=== PATIENT | female | born 1980 | race Caucasian/White ===

== ENCOUNTER 2022-10-16 17:23 | Emergency (ER) | payer BC, SELFPAY ==
[2022-10-16 17:29] VITALS: BP 133/93; PULSE 69; RESP 16; TEMP 36.8; O2SAT 100; BMI 25.7
--- NOTE | 2022-10-16 17:32 | ED.UPPEXIN1 ---
HPI - Extremity Injury (Upper) General Chief Complaint: Extremity Injury, Upper Stated Complaint: RT WRIST INJURY/FALL Time Seen by Provider: 10/16/22 17:32 Source: patient and family Mode of arrival: walk-in Limitations: no limitations History of Present Illness HPI narrative: pt tripped and fell as she was going to work one hour prior to arrival. She landed on her right hand and hurt her right wrist. She complains of swelling to the distal radius area. She denies any paresthesias, weakness. Pain is worse when she tries to move her wrist. She denies any pain to the snuffbox. She denies any numbness. Patient denies any fever, chills. She denies any history of IV drug use. Related Data Allergies Allergy/AdvReac Type Severity Reaction Status Date / Time ciprofloxacin [From Cipro] Allergy Severe Verified 10/16/22 17:32 penicillin Allergy Severe Hives Uncoded 10/16/22 17:32 oral contraceptive AdvReac Severe Abdominal Uncoded 10/16/22 17:32 Pain Review of Systems ROS Status of ROS 10 or more systems reviewed and unremarkable except as noted in history and below [facility] Social History Smoking status: Current every day smoker Exam Narrative Exam Narrative: Nurses notes and vital signs reviewed and patient is not hypoxic. General: Nontoxic, Well-appearing and in no apparent distress. Skin: Warm, dry, no pallor noted. No Rash Head: Normocephalic, atraumatic. Neck: Supple, non-tender. Eye: Pupils are equal, round and EOMI. No scleral icterus. Ears, Nose, Mouth, and Throat: TM clear, no posterior oropharynx erythema or nasal mucosal hypertrophy, uvula is mid-line Oral mucosa is moist Cardiovascular: Regular Rate and Rhythm without murmur, gallop or rub. Respiratory: No accessory muscle use or respiratory distress. Lungs are clear to auscultation, no wheezing, rales or rhonchi Chest Wall: no tenderness Back: No midline thoracic or lumbar vertebral tenderness. No CVA tenderness Musculoskeletal: Mild edema to the distal radius surface. Tenderness to palpation. There are no step-offs. No erythema, no pain over the snuffbox. No pulse +2, capillary refill is brisk. normal ROM, no calf or popliteal tenderness, no lower extremity edema/swelling. GI: Abdomen is soft, non-distended. Normal bowel sounds. No masses appreciated. No tenderness to palpation. No rebound, guarding, or rigidity noted. Neurological: A&O x4. No cranial nerve dysfunction observed. No truncal ataxia. Moves all extremities. Sensation intact. Psychiatric: Cooperative and interactive. Normal mood and affect. Constitutional Vital Signs, click to edit/add: Last Vital Signs Temp 98.3 F 10/16/22 17:29 Pulse 69 10/16/22 17:29 Resp 16 10/16/22 17:29 BP 133/93 H 10/16/22 17:29 Pulse Ox 100 10/16/22 17:29 O2 Del Method Room Air 10/16/22 17:29 Course Vital Signs Vital signs: Vital Signs Temperature 98.3 F 10/16/22 17:29 Pulse Rate 69 10/16/22 17:29 Respiratory Rate 16 10/16/22 17:29 Blood Pressure 133/93 H 10/16/22 17:29 Pulse Oximetry 100 10/16/22 17:29 Oxygen Delivery Method Room Air 10/16/22 17:29 Temperature 98.3 F 10/16/22 17:29 Pulse Rate 69 10/16/22 17:29 Respiratory Rate 16 10/16/22 17:29 Blood Pressure 133/93 H 10/16/22 17:29 Pulse Oximetry 100 10/16/22 17:29 Oxygen Delivery Method Room Air 10/16/22 17:29 MDM - Extremity Injury (Upper) MDM Narrative Medical decision making narrative: X-ray does not show any bony injury. Patient has been with range of motion. She states she will take Motrin when she gets home. She'll be placed on an Josue wrap and a velcro splint for now. Patient will follow up with primary care doctor. No additional indication for emergent studies at this time. I answered all questions. Discussed discharge instructions including standard anticipatory guidance and what should prompt a return to the emergency department, including if they get worse are not getting better or develops any new or concerning symptoms. I've given them specific time frame in which to follow-up, and who to follow-up with. The patient demonstrates understanding. Patient is nontoxic and stable for discharge with outpatient follow-up. This note was created with the assistance of a speech recognition program. Although the intention is to generate documents that actually reflects the content of the visit, no guarantees can be provided that every mistake has been identified and corrected by editing. Differential Diagnosis Differential diagnosis: Likely sprain and strain of wrist and fracture of wrist Discharge Plan Discharge Chief Complaint: Extremity Injury, Upper Clinical Impression: Sprain and strain of wrist Patient Disposition: Home, Self-Care Time of Disposition Decision: 18:29 Condition: Good Mode of Transportation: Private Vehicle Instructions: Sprain (ED) Stand Alone Forms: Portal Instructions Referrals: FABRICE PEREZ [Primary Care Provider] - 1 week
--- NOTE | 2022-10-16 17:33 | XR_ITS ---
The [address] [address] Patient Name: KRISTIE HEARD MRN: [id number] date: 1980 Sex: F Assigned Patient Location: ER Current Patient Location: ED.MAIN Accession/Order Number: [id number] Exam Date: 10/16/2022 17:42 Report Date: 10/16/2022 18:10 At the request of: JUSTIN GARNETT Procedure: XR wrist RT 2V EXAM: XR wrist RT 2V HISTORY: injury COMPARISON: None. TECHNIQUE: 2 views of the right wrist are performed. FINDINGS: There is no acute fracture. The bony structures are intact. There appears to be some soft tissue edema along the radial aspect of the distal forearm. Joint spaces are maintained. XR/XR wrist RT 2V IMPRESSION: Soft tissue swelling along the distal forearm. No acute fracture is seen. Electronically authenticated by: LUIS MARTELL Date: 10/16/2022 18:10
[2022-10-16 18:35] VITALS: BP 126/76; PULSE 88; RESP 18; O2SAT 99
== END 2022-10-16 18:39 | disposition home or self-care (01) ==
PROVIDERS: Emergency Provider Emergency Medicine; PCP Family Medicine
DX: S63.501A Unspecified sprain of right wrist, initial encounter (principal); S66.911A Strain of unspecified muscle, fascia and tendon at wrist and hand level, right hand, initial encounter; W01.10XA Fall on same level from slipping, tripping and stumbling with subsequent striking against unspecified object, initial encounter; F17.210 Nicotine dependence, cigarettes, uncomplicated
CPT/HCPCS: 73100; 99283

== ENCOUNTER 2024-02-09 18:58 | Emergency (ER) | payer BC, SELFPAY ==
[2024-02-09 19:01] VITALS: BP 150/89; PULSE 75; TEMP 36.5; O2SAT 98; BMI 30.9
--- NOTE | 2024-02-09 19:12 | ED_ITS ---
HPI HPI - General Adult General Chief complaint: Headache Stated complaint: MIGRAINE Time Seen by Provider: 02/09/24 19:04 Source: patient Mode of arrival: walk-in Limitations: no limitations History of Present Illness HPI narrative: pt w long history of migraine headaches presents with pain typical of her prior migraines - diffuse headache that is associated with nausea and some photophobia along with increased desire to sleep. Pain started about one week ago -no precipitating injury or other inciting event. no relief with tylenol, excedrin, motrin or other OTC meds. Dr Siddiqi has previously prescribed triptans without any success. No fever or chills. No neck or back manjarrez. No URI symptoms. No dizziness. or visual changes. No numbness, tingling or weakness. no sensory changes. Related Data Allergies Allergy/AdvReac Type Severity Reaction Status Date / Time ciprofloxacin (From Cipro) Allergy Severe Verified 10/16/22 17:32 penicillin Allergy Severe Hives Uncoded 10/16/22 17:32 oral contraceptive AdvReac Severe Abdominal Uncoded 10/16/22 17:32 Pain Opioid HPI Opioid Management Most Recent Opioid Data: Last Pain Scale 5 02/09/24 20:50 02/09/24 Last ED Pain Assessment 02/09/24 20:50 PFSH PFSH Social History Smoking status: Current every day smoker Little interest or pleasure in doing things: not at all Feeling down, depressed, or hopeless: not at all Exam Narrative Exam Narrative: Nurses notes and vital signs reviewed and patient is not hypoxic. afebrile General: Well-appearing and in no apparent distress. Skin: Warm, dry, no pallor noted. No meningitis-type rash. Head: Normocephalic, atraumatic. Neck: Supple, non-tender. No nuchal rigidity or meningismus. Eye: Pupils are equal, round and EOMI. No nystagmus Ears, Nose, Mouth, and Throat: Oral mucosa is moist Cardiovascular: Regular Rate and Rhythm without murmur, gallop or rub. Respiratory: No accessory muscle use or respiratory distress. Lungs are clear to auscultation, no wheezing, rales or rhonchi Musculoskeletal: normal ROM GI: Abdomen is soft, non-distended. Normal bowel sounds. Neurological: A&O x4. No cranial nerve dysfunction observed. No truncal ataxia. Moves all extremities. Sensation intact. Psychiatric: Cooperative and interactive. Normal mood and affect. Constitutional Vital Signs, click to edit/add: Last Vital Signs Temp 97.7 F 02/09/24 19:01 Pulse 59 L 02/09/24 20:50 Resp 16 02/09/24 20:50 BP 125/78 02/09/24 20:50 Pulse Ox 100 02/09/24 20:50 O2 Del Method Room Air 02/09/24 20:50 Course Vital Signs Vital signs: Vital Signs Temperature 97.7 F 02/09/24 19:01 Pulse Rate 75 02/09/24 19:01 Respiratory Rate 18 02/09/24 19:01 Blood Pressure 150/89 H 02/09/24 19:01 Pulse Oximetry 98 02/09/24 19:01 Oxygen Delivery Method Room Air 02/09/24 19:01 Temperature 97.7 F 02/09/24 19:01 Pulse Rate 59 L 02/09/24 20:50 Respiratory Rate 16 02/09/24 20:50 Blood Pressure 125/78 02/09/24 20:50 Pulse Oximetry 100 02/09/24 20:50 Oxygen Delivery Method Room Air 02/09/24 20:50 Medical Decision Making MDM Narrative Medical decision making narrative: Pt presents with headache typical of her prior migraines. No findings on interview or exam to suggest acute meningitis or SAH. Peripheral IV established and pt received IV Zofran and IV Toradol. On recheck @ 2004, the pt reported decrease in Headache from 8/10 to 5/10. She was ordered to receive IV solu-medrol and IV Benadryl to try and decrease the pain level further. On recheck @ 2049, about 30min after she received the 2nd round of meds, her headache had decreased to 2/10. She was discharged home. Discharge Plan Discharge Chief Complaint: Headache Clinical Impression: Migraine Patient Disposition: Home, Self-Care Time of Disposition Decision: 21:02 Print Language: Vincentian Instructions: Migraine Headache (ED) Referrals: FABRICE SIDDIQI [Primary Care Provider] - 1 week
[2024-02-09] MEDS: ONDANSETRON PF 4 MG/2 ML VIAL IV (19:37)
[2024-02-09] MEDS: KETOROLAC TROMETHAMINE 30 MG/ML VIAL IVP (19:37)
[2024-02-09] MEDS: METHYLPREDNISOLONE SOD SUCC PF 125 MG/2 ML VIAL IVP (20:34)
[2024-02-09] MEDS: DIPHENHYDRAMINE HCL 50 MG/ML VIAL 25 MG IV (20:34)
[2024-02-09 20:50] VITALS: BP 125/78; PULSE 59; O2SAT 100
== END 2024-02-09 21:15 | disposition home or self-care (01) ==
PROVIDERS: Emergency Provider Emergency Medicine; PCP Family Medicine
DX: G43.909 Migraine, unspecified, not intractable, without status migrainosus (principal); F17.200 Nicotine dependence, unspecified, uncomplicated
CPT/HCPCS: 96374; 96375; 99284; J1200; J1885; J2405; J2919

== ENCOUNTER 2024-03-09 18:51 | Emergency (ER) | payer BC, SELFPAY ==
[2024-03-09 19:01] VITALS: BP 160/97; PULSE 90; TEMP 36.7; O2SAT 96; BMI 29.1
[2024-03-09 19:20] LABS: Glucometer 101 mg/dL (74-106)
--- NOTE | 2024-03-09 19:20 | PC.NURSE ---
FSBS is 101
--- NOTE | 2024-03-09 19:21 | ECG_ITS ---
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
--- NOTE | 2024-03-09 19:23 | ED_ITS ---
HPI HPI - General Adult General Chief complaint: Anxiety Stated complaint: SHAKES Time Seen by Provider: 03/09/24 19:02 Source: patient Mode of arrival: walk-in History of Present Illness HPI narrative: 43-year-old male presents to the emergency department for tremors. This started about 2 hours ago. She gets this a few times a week for many years. She has a history of anxiety but has not taken her Xanax in a month. She also has a history of essential tremors. No fever vomiting chest pain or cough. Related Data Home Medications ?Medication ?Instructions ?Recorded ?Confirmed alprazolam 0.5 mg tablet mg 03/09/24 cyclobenzaprine 10 mg tablet mg 03/09/24 Allergies Allergy/AdvReac Type Severity Reaction Status Date / Time ciprofloxacin (From Cipro) Allergy Severe Verified 10/16/22 17:32 penicillin Allergy Severe Hives Uncoded 10/16/22 17:32 oral contraceptive AdvReac Severe Abdominal Uncoded 10/16/22 17:32 Pain Opioid HPI Opioid Management Most Recent Opioid Data: Last Pain Scale 5 02/09/24 20:50 02/09/24 Review of Systems ROS Narrative A ten point review of systems is negative except as noted above. PFSH PFSH Social History Smoking status: Current every day smoker Little interest or pleasure in doing things: not at all Feeling down, depressed, or hopeless: not at all Exam Narrative Exam Narrative: Nurses note and vital signs reviewed and patient is not hypoxic. General: The patient appears in no apparent distress. Patient is resting comfortably on cart. Skin: Warm, dry, no pallor noted. There is no rash noted. Head: Normocephalic, atraumatic Eye: Normal conjunctiva, no drainage Ears, Nose, Mouth, and Throat: oral mucosa is moist. Nares patent. Cardiovascular: Regular Rate and Rhythm Respiratory: Patient is in no distress, no accessory muscle use, lungs are clear to auscultation, no wheezing, rales or rhonchi Back: non-tender GI: Soft and nontender Musculoskeletal: The patient has no evidence of calf tenderness, no pitting edema, symmetrical pulses noted bilaterally Neurological: A&O x4, normal speech; she has tremors in all 4 extremities Psychiatric: Cooperative Constitutional Vital Signs, click to edit/add: Last Vital Signs Temp 98.1 F 03/09/24 19:01 Pulse 90 03/09/24 19:01 Resp 20 03/09/24 19:01 BP 128/90 03/09/24 20:03 Pulse Ox 96 03/09/24 19:01 O2 Del Method Room Air 03/09/24 19:01 Course Vital Signs Vital signs: Vital Signs Temperature 98.1 F 03/09/24 19:01 Pulse Rate 90 03/09/24 19:01 Respiratory Rate 20 03/09/24 19:01 Blood Pressure 160/97 H 03/09/24 19:01 Pulse Oximetry 96 03/09/24 19:01 Oxygen Delivery Method Room Air 03/09/24 19:01 Temperature 98.1 F 03/09/24 19:01 Pulse Rate 90 03/09/24 19:01 Respiratory Rate 20 03/09/24 19:01 Blood Pressure 128/90 03/09/24 20:03 Pulse Oximetry 96 03/09/24 19:01 Oxygen Delivery Method Room Air 03/09/24 19:01 Medical Decision Making MDM Narrative Medical decision making narrative: Blood work is nonspecific. She was given IV Ativan and her tremors have resolved. I suspect that her symptoms are due to anxiety. Treatment diagnosis and follow-up were discussed with the patient. Differential Diagnosis Differential Diagnosis: Tremors, anxiety Lab Data Lab results reviewed: Yes I reviewed the patient's lab results Labs: Lab Results 03/09/24 03/09/24 Range/Units 19:19 19:35 WBC 15.1 H (4.0-11.0) 10^3/uL RBC 5.35 (4.20-5.40) 10^6/uL Hgb 15.4 (12.0-16.0) g/dL Hct 45.5 (36.0-48.0) % MCV 85.0 (81.0-99.0) fL MCH 28.8 (26.7-34.0) pg MCHC 33.8 (29.9-35.2) g/dL RDW 13.4 (11.0-15.0) % Plt Count 324 (150-450) 10^3/uL MPV 11.3 (9.5-13.5) fL Neut % (Auto) 71.1 (43.0-75.0) % Lymph % (Auto) 23.7 (20.5-60.0) % O'Brien % (Auto) 3.4 (1.7-12.0) % Eos % (Auto) 0.7 L (0.9-7.0) % Baso % (Auto) 0.5 (0.2-2.0) % Neut # (Auto) 10.7 H (1.4-6.5) 10^3/uL Lymph # (Auto) 3.6 (1.2-3.8) 10^3/uL O'Brien # (Auto) 0.5 (0.3-0.8) 10^3/uL Eos # (Auto) 0.1 (0.0-0.7) 10^3/uL Baso # (Auto) 0.1 (0.0-0.1) 10^3/uL Abs Immat Gran (auto) 0.09 H (0.00-0.03) 10^3/uL Imm/Tot Granulo (auto) 0.6 H (0.0-0.5) % Sodium 139 (136-145) mmol/L Potassium 4.0 (3.5-5.1) mmol/L Chloride 103 (98-107) mmol/L Carbon Dioxide 22.0 (21.0-32.0) mmol/L Anion Gap 18.0 BUN 10.0 (7.0-18.0) mg/dL Creatinine 0.83 (0.55-1.02) mg/dL Est GFR ( Amer) >60 (>=60 mL/min/1.73m^2) Est GFR (Non-Af Amer) >60 (>=60 mL/min/1.73m^2) BUN/Creatinine Ratio 12.0 Glucose 95 (74-106) mg/dL Calcium 9.7 (8.5-10.1) mg/dL POC Glucose 101 (74-106) mg/dL ECG Data Attestation: I personally reviewed and interpreted this ECG as follows: (EKG on my interpretation shows normal sinus rhythm with rate of 75 and no acute change) Discharge Plan Discharge Chief Complaint: Anxiety Clinical Impression: Acute anxiety Patient Disposition: Home, Self-Care Time of Disposition Decision: 20:21 Condition: Good Mode of Transportation: Private Vehicle Prescriptions / Home Meds: No Action cyclobenzaprine 10 mg tablet alprazolam 0.5 mg tablet Print Language: Estonian Instructions: Anxiety (ED) Referrals: FABRICE PEREZ [Primary Care Provider] - 1 week
[2024-03-09] MEDS: LORAZEPAM 2 MG/ML VIAL 1 MG IV (19:37)
[2024-03-09 20:03] VITALS: BP 128/90
[2024-03-09 20:04] LABS: Basophils Absolute Auto 0.1 10^3/uL (0.0-0.1); Basophils Percent Auto 0.5 % (0.2-2.0); Eosinophils Absolute Auto 0.1 10^3/uL (0.0-0.7); Eosinophils Percent Auto 0.7 % (0.9-7.0); Hematocrit 45.5 % (36.0-48.0); Hemoglobin 15.4 g/dL (12.0-16.0); Immature Granulocytes Abs Auto 0.09 10^3/uL (0.00-0.03); Immature Granulocytes Pct Auto 0.6 % (0.0-0.5); Lymphocytes Absolute Auto 3.6 10^3/uL (1.2-3.8); Lymphocytes Percent Auto 23.7 % (20.5-60.0); Mean Corpuscular HGB Conc 33.8 g/dL (29.9-35.2); Mean Corpuscular Hemoglobin 28.8 pg (26.7-34.0); Mean Platelet Volume 11.3 fL (9.5-13.5); Monocytes Absolute Auto 0.5 10^3/uL (0.3-0.8); Monocytes Percent Auto 3.4 % (1.7-12.0); Neutrophils Absolute Auto 10.7 10^3/uL (1.4-6.5); Neutrophils Percent Auto 71.1 % (43.0-75.0); Platelet Count 324 10^3/uL (150-450); Red Blood Count 5.35 10^6/uL (4.20-5.40); Red Cell Distribution Width 13.4 % (11.0-15.0); White Blood Count 15.1 10^3/uL (4.0-11.0)
[2024-03-09 20:14] LABS: Calcium 9.7 mg/dL (8.5-10.1); Chloride 103 mmol/L (98-107); Estimated GFR (African America >60 (>=60 mL/min/1.73m^2); Estimated GFR (Non-African Ame >60 (>=60 mL/min/1.73m^2); Glucose 95 mg/dL (74-106); Sodium 139 mmol/L (136-145)
== END 2024-03-09 20:36 | disposition home or self-care (01) ==
PROVIDERS: Emergency Provider Emergency Medicine; PCP Family Medicine
DX: F41.9 Anxiety disorder, unspecified (principal); F17.200 Nicotine dependence, unspecified, uncomplicated
CPT/HCPCS: 36415; 80048; 85025; 93005; 96374; 99285; J2060

== ENCOUNTER 2025-02-06 15:09 | Emergency (ER) | payer OTHER, SELFPAY ==
[2025-02-06 15:25] VITALS: BP 161/97; PULSE 76; TEMP 36.8; O2SAT 99; BMI 32.6
--- NOTE | 2025-02-06 15:35 | ED.DENTAL1 ---
HPI - Dental/Oral General Chief complaint: Dental/Oral Stated complaint: DENTAL PAIN Time Seen by Provider: 02/06/25 15:23 Source: patient Mode of arrival: walk-in History of Present Illness HPI Narrative: 44-year-old female presents here with a chief complaint of left facial swelling. She states she woke with dental pain earlier today. She has multiple dental caries throughout and gingivitis noted. No acute abscess to drain at this time but she has pain and swelling to dentitions 15/16, 21/22 region of her face. Patient denies fevers or chills. Patient is a smoker. She does not have a dentist. Teeth map:  1. dental pain with facial swelling 2. dental pain with facial swelling Related Data Home Medications ?Medication ?Instructions ?Recorded ?Confirmed alprazolam 0.5 mg tablet 0.5 mg PO PRN PRN anxiety 03/09/24 02/06/25 Previous Rx's ?Medication ?Instructions ?Recorded clindamycin HCl 300 mg capsule 300 mg PO Q8H 10 days #30 caps 02/06/25 ibuprofen 800 mg tablet 800 mg PO Q8H PRN pain #30 tabs 02/06/25 Allergies Allergy/AdvReac Type Severity Reaction Status Date / Time ciprofloxacin (From Cipro) Allergy Severe Hives Verified 02/06/25 15:22 penicillin Allergy Severe Hives Uncoded 02/06/25 15:22 oral contraceptive AdvReac Severe Abdominal Uncoded 02/06/25 15:22 Pain Review of Systems ROS Status of ROS 10 or more systems reviewed and unremarkable except as noted in history and below PFSH PFSH Social History Smoking status: Current every day smoker Little interest or pleasure in doing things: not at all Feeling down, depressed, or hopeless: not at all Exam Narrative Exam Narrative: Nurses notes reviewed and patient is noted to be non-hypoxic. General: The patient is comfortable, alert and oriented x3, well appearing, non toxic in no apparent distress. Head: Atraumatic and normocephalic. Eyes: Normal conjunctiva, no exudates. ENT: The oropharynx is normal. No pharyngeal erythema, uvular edema, tonsillar exudates, asymmetry or trismus. Uvula is midline. Mouth is normal to inspection With the exception of a pain on percussion of the tooth # and evidence of dental caries. There is evidence of left facial asymmetry no acute abscess formation. Floor of the mouth is soft. No tenderness in the submental or submandibular space. No tongue elevation or deviation. The patient has no evidence of periapical abscess, gingivitis, ANUG or other acute pathology. Airway is patent. Neck: The neck demonstrates normal range of motion. No meningeals signs are present. No stridor. No masses or lymphandenopathy noted. Respiratory: No acute distress, lungs are clear to auscultation, no wheezing, rhonchi, or rales noted. No stridor or retractions are noted. Cardiovascular: Regular rate and rhythm Skin: The skin exam shows no evidence of rashes Neuro: Alert and oriented x4, normal speech Lymphatic: No cervical lymphadenopathy Constitutional Vital Signs, click to edit/add: Last Vital Signs Temp 98.2 F 02/06/25 15:25 Pulse 76 02/06/25 15:25 Resp 16 02/06/25 15:25 BP 161/97 H 02/06/25 15:25 Pulse Ox 99 02/06/25 15:25 O2 Del Method Room Air 02/06/25 15:25 Course Vital Signs Vital signs: Vital Signs Temperature 98.2 F 02/06/25 15:25 Pulse Rate 76 02/06/25 15:25 Respiratory Rate 16 02/06/25 15:25 Blood Pressure 161/97 H 02/06/25 15:25 Pulse Oximetry 99 02/06/25 15:25 Oxygen Delivery Method Room Air 02/06/25 15:25 Temperature 98.2 F 02/06/25 15:25 Pulse Rate 76 02/06/25 15:25 Respiratory Rate 16 02/06/25 15:25 Blood Pressure 161/97 H 02/06/25 15:25 Pulse Oximetry 99 02/06/25 15:25 Oxygen Delivery Method Room Air 02/06/25 15:25 MDM - Dental/Oral MDM Narrative Medical decision making narrative: 44-year-old female presents here with a chief complaint of left facial swelling. She states she woke with dental pain earlier today. She has multiple dental caries throughout and gingivitis noted. No acute abscess to drain at this time but she has pain and swelling to dentitions 15/16, 21/22 region of her face. Patient denies fevers or chills. Patient is a smoker. She does not have a dentist. Patient presented to the emergency room chief complaint of facial swelling. She has dental pain noted to the left upper and lower region as depicted on the diagram above. She has no acute fever at this time. She is able to open and close her mouth without difficulty. She was given 600 mg of clindamycin here in the emergency room along with dental anesthesia and 800 mg of Motrin. She will be discharged home with prescription for clindamycin and ibuprofen. Also told to use dental anesthesia. We also discussed using mouthwash. Patient will follow-up with a dentist she does not currently have 1 she is going to look into [facility] or other local area. She is told to continue taking the antibiotics till they are completely gone and try to avoid smoking. Differential Diagnosis Differential diagnosis: Likely gingival abscess, dental caries, toothache and dental abscess Medical Records Attestation: I reviewed the patient's medical records. Discharge Plan Discharge Chief Complaint: Dental/Oral Clinical Impression: Dental caries, Toothache, Dental abscess Patient Disposition: Home, Self-Care Time of Disposition Decision: 15:34 Condition: Good Mode of Transportation: Private Vehicle Prescriptions / Home Meds: New ibuprofen 800 mg tablet 800 mg PO Q8H PRN (Reason: pain) Qty: 30 0RF clindamycin HCl 300 mg capsule 300 mg PO Q8H 10 Days Qty: 30 0RF No Action alprazolam 0.5 mg tablet 0.5 mg PO PRN PRN (Reason: anxiety) Print Language: Cape Verdean Instructions: Dental Abscess (ED), Toothache (ED) Additional Instructions: follow up with dentist, take antibiotics until completely gone. you may take another dose tonight before bed Referrals: FABRICE PEREZ [Primary Care Provider, Family Practice] - 1 week Discharge Date/Time: 02/06/25 15:53
[2025-02-06] MEDS: CLINDAMYCIN HCL 150 MG CAPSULE 600 MG PO (15:44)
--- OUTSIDE RECORDS SUMMARY | 2025-02-06 15:44 | XMS_ITS | Clinical Summary ---
Author Organization [employer] [facility] tem Address [id number] [place] [address] Care Team Providers Care Dial Refinisher Name Role Phone Zuleika Siddiqi MD Primary Care Provider [phone] Allergies Active AllergyReactionsCriticalityNoted CjaqOjhkwzocQtttsnclxcyrb37/25/2021 Vkwtgijxsql81/25/2021 Medications MedicationSigDispense QuantityRefillsLast FilledStart DateEnd DateStatus ALPRAZolam (XANAX) 0.5 mg tablet Take 0.5 mg by mouth 2 (two) times a day.Active citalopram (CeleXA) 40 mg tablet Take 40 mg by mouth daily.Active Social History Tobacco UseTypesPacks/DayYears UsedDateSmoking Tobacco: Every DaySmokeless Tobacco: NeverAlcohol UseStandard Drinks/WeekCommentsYes0 (1 standard drink = 0.6 oz pure alcohol)rarelyCommentsUnknownSex and Gender InformationValue Date RecordedSex Assigned at BirthNot on fileLegal UcvZollgh00/25/2021 12:39 PM EDTGender IdentityNot on fileSexual OrientationNot on file Last Filed Vital Signs Vital SignReadingTime TakenCommentsBlood Qtfexdfj495/8507 1:11 PM EDT Gzgmb9899 1:11 PM FQAQyixwsdilqv08 ??C (98.6 ??F)09/24/2020 1:11 PM EDT Respiratory Edrn1608 1:11 PM EDTOxygen Jsamerdadd73%09/24/2020 1:11 PM EDTInhaled Oxygen Concentration--Weight--Height--Body Mass Index-- Plan of Treatment Health MaintenanceDue DateLast DoneCommentsDepression Ghtvglylc40/06/1995Tobacco Pyjidihww67/06/1995Adult BMI Dpiuxlgam69/06/2001DTaP,Tdap and Td Vaccines (1 - Tdap)2001Pap Smear12/07/2003Influenza Zfrrzzk32/01/64054604/22/2018 Medical Devices Not on file Insurance Care Teams Team MemberRelationshipSpecialtyStart DateEnd Date Zuleika [place]iddiq[place] [address] [place] [address] [facility] - [facility]24/20
--- OUTSIDE RECORDS SUMMARY | 2025-02-06 15:44 | XMS_ITS | CCD ---
Author Organization [facility] Care Team Providers Care Practice Administrator Name Role Phone EDA AMIN Admitting Unavailable EDA AMIN Consulting Unavailable EDA AMIN Attending Unavailable CHRIS, DR AVINA Primary Care Unavailable MARIOLA ., JUSTIN Consulting Unavailable MARIOLA ., JUSTIN Attending Unavailable MARIOLA ., JUSTIN Admitting Unavailable CHRIS, DR AVINA Primary Care Unavailable LETTY, DR MEAGHAN Escobar Admitting Unavailabl e REINECK, DR MEAGHAN Escobar Consulting Unavailabl e REINECK, DR MEAGHAN Escobar Attending Unavailabl e CHRIS, DR AVINA Primary Care Unavailable MARIOLA ., JUSTIN Admitting Unavailable MARIOLA ., JUSTIN Consulting Unavailable MARIOLA ., JUSTIN Attending Unavailable CHRIS, DR AVINA Primary Care Unavailable MARIOLA ., JUSTIN Consulting Unavailable MARIOLA ., JUSTIN Attending Unavailable MARIOLA ., JUSTIN Admitting Unavailable CHRIS, DR AVINA Primary Care Unavailable RENATA HAIRSTON Consulting Unavailable Zuleika Perez MD Unavailable Zuleika Perez MD Primary Care Provider Zuleika Perez MD Unavailable ZULEIKA PEREZ Attending Unavailable ZULEIKA PEREZ Attending Unavailable JR. DIXON GEORGE C Attending UnavailTREVER Catalan Attending Unavailable TREVER RIVERA Attending Unavailable TREVER RIVERA Attending Unavailable TREVER RIVERA Attending Unavailable TREVER RIVERA Attending Unavailable ZULEIKA PEREZ Attending Unavailable ZULEIKA PEREZ Referring Unavailable ROHINI GONZALES Attending Unavailable Allergies Allergy ClassificationReported Allergen(s)Allergy TypeDate of OnsetReaction(s) Facility (1 source)CiprofloxacinDrug AllergyThe [facility] ([facility] source)medroxyPROGESTERoneDrug AllergyThe [facility] (1 source)PenicillinsDrug allergy (disorder)[facility] (20 sources)CiprofloxacinDrug Uivksti91-95-6920[facility] (20 sources)Penicillin VDrug Prhvnbl13-62-7865[facility] Medications Current Medications MedicationDrug Class(es)DatesSig (Normalized)Sig (Original)ALPRAZolam 0.5 mg oral tablet (20 sources)BenzodiazepineStart: 12-16-2023 End: 84-84-5594acey 1 tablet by mouth onceALPRAZolam (Xanax) 0.5 MG tablet Indications: Generalized anxiety disorder Take 1 tablet (0.5 mg) by mouth every 12 (twelve) hours 60 tablet 08/04/2024 09/03/2024 ActiveStart: 10-09-2023 End: 15-84-4320cfva 1 tablet by mouth every twelve hoursALPRAZolam (Xanax) 0.5 MG tablet Indications: Generalized anxiety disorder (CMS/HCC) take 1 tablet by mouth every 12 hours 60 tablet 10/09/2023 12/16/2023 Discontinued (Reorder) Start: 06-02-4848hbmp 1 tablet by mouth onceALPRAZolam (Xanax) 0.5 MG tablet Indications: Generalized anxiety disorder (CMS/HCC) Take 1 tablet (0.5 mg) by mouth every 12 (twelve) hours. 60 tablet 0 12/12/2022 Activecelecoxib 200 mg oral capsule (1 source)Nonsteroidal Anti-inflammatory DrugStart: 04-02-2023 End: 21-02-4956jglr 1 capsule by mouth in the morningcelecoxib (CeleBREX) 200 MG capsule Indications: Pain of both elbows Take 1 capsule (200 mg) by mouth in the morning for 14 days. 14 capsule 0 04/02/2023 04/16/2023 Activecyclobenzaprine hydrochloride 10 mg oral tablet (20 sources)Muscle RelaxantStart: 16-51-8796jzdl 1 tablet by mouth in the morning, then take 1 tablet by mouth in the evening, then take 1 tablet by mouth at bedtimecyclobenzaprine (Flexeril) 10 MG tablet Indications: Chronic migraine without aura, not intractable, without status migrainosus Take 1 tablet (10 mg) by mouth in the morning and 1 tablet (10 mg) in the evening and 1 tablet (10 mg) before bedtime. Do all this for 10 days. 30 tablet 04/08/2023 ActiveStart: 11-29-5598boca 1 tablet by mouth in the morning, then take 1 tablet by mouth in the evening, then take 1 tablet by mouth at bedtimecyclobenzaprine (Flexeril) 10 MG tablet Indications: Chronic migraine without aura, not intractable, without status migrainosus (CMS/HCC) Take 1 tablet (10 mg) by mouth in the morning and 1 tablet (10 mg) in the evening and 1 tablet (10 mg) before bedtime. Do all this for 10 days. 30 tablet 0 09/30/2022 Active1 ml erenumab-aooe 140 mg/ml auto-injector (16 sources)Start: 12-16-2023 End: 77-45-5928esyzbz 1 mL by subcutaneous injection onceerenumab (Aimovig) 140 MG/ML injection Indications: Chronic migraine without aura, not intractable, without status migrainosus (CMS/HCC) Inject 1 mL (140 mg) under the skin every 28 (twenty-eight) days 1.12 mL 12/16/2023 01/15/2024 ActiveStart: 12-16-2023 End: 93-52-2847holcnksc (Aimovig) injection 70 mgStart: 12-16-2023 End: 39-46-5864lcsugegh (Aimovig) injection 70 mgStart: 73-47-9202vdjzgbnj (Aimovig) injection 70 mg1.5 ml fremanezumab-vfrm 150 mg/ml auto-injector (8 sources)Start: 17-03-8176aldkbzwreixc (Ajovy) 225 MG/1.5ML auto-injector Indications: Intractable chronic migraine with aurawith status migrainosus Inject 1 pen (225 mg) under the skin every 30 (thirty) days 4.5 mL 3 08/17/2024 ActiveStart: 66-86-6216qgamxqqzcoem (Ajovy) 225 MG/1.5ML auto-injector Indications: Intractable chronic migraine with aurawith status migrainosus (CMS/HCC) Inject 1 pen (225 mg) under the skin every 30 (thirty) days 4.5 mL 3 02/17/2024 ActivemethylPREDNISolone (1 source)CorticosteroidStart: 89-42-6462pkboieQRPDKTKvspwz (Medrol Dospak) 4 MG tablets Indications: Pain of both elbows Follow schedule onpackage instructions 21 tablet 0 04/02/2023 Activerimegepant 75 mg disintegrating oral tablet (20 sources)Start: 85-48-5414Ykgqsyibrw Sulfate (Nurtec) 75 MG tablet dispersible Indications: Chronic migraine without aura, not intractable, without status migrainosus Place 75 mg under the tongue if needed (every other day) 16 tablet 3 01/21/2024 ActiveStart: 81-34-8780Gcpfkgdosg Sulfate (Nurtec) 75 MG tablet dispersible Indications: Chronic migraine without aura, not intractable, without status migrainosus (CMS/HCC) Place 75 mg under the tongue if needed (within 1hour of headache). 8 tablet 3 09/30/2022 Active Completed/Discontinued Medications MedicationDrug Class(es)DatesSig (Normalized)Sig (Original)citalopram 20 mg oral tablet (19 sources)Serotonin Reuptake Inhibitor End: 02-29-1578apjxtbkcsm (CeleXA) 20 MG tablet Indications: Generalized anxiety disorder (CMS/HCC) 1 (one) time each day at the same time. 08/03/2024 Discontinued (Other)2 ml ketorolac tromethamine 30 mg/ml cartridge (4 sources)Nonsteroidal Anti-inflammatory Drug, Cyclooxygenase InhibitorStart: 02-17-2024 End: 68-71-942977 mg, Intramuscular, Once, On Fri02/17/24 at 0845, For 1 dose, Max daily dose: 120 mg. Max duration: 5 days totalStart: 02-17-2024 End: 30-34-426863 mg, Intramuscular, Once, On Fri02/17/24 at 0845, For 1 dose, Max daily dose: 120 mg. Max duration: 5 days totalStart: 02-17-2024 End: 07-31-1962mkhrhbtvr (Toradol) injection 60 mgStart: 02-17-2024 End: 98-36-4832equypcbdz (Toradol) injection 60 mg Problems Active Problems Problem ClassificationProblemDateDocumented DateEpisodic/ChronicAnxiety disorders (20 sources)Anxiety disorder, unspecified; Translations: [Generalized anxiety disorder]Onset: 981344-54-1355WclahnoVgoxujzow of lipid metabolism (20 sources)Hypertriglyceridemia; Translations: [Pure hyperglyceridemia]Onset: 997422-55-7718DwlmvgyMpjjmidi; including migraine (20 sources)Migraine, unspecified, not intractable, without status migrainosus; Translations: [Migraine withoutaura, not refractory ]Onset: 11-12-2021 Resolved: 180342-32-8596RtpjyzyXllbwazs; including migraine (3 sources)Headache; including migraine; Translations: [HEADACHE UNSPECIFIED] Onset: 98-27-0119Xecve aftercare (1 source)Other local company intermodal truck driver (current) drug therapy; Translations: [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]Onset: 41-88-2665ZkcmitkpJyrwi connective tissue disease (1 source)Other enthesopathies, not elsewhere classified; Translations: [OTHER ENTHESOPATHIES NEC]Onset: 50-16-4121ZnkivfmpQkjkp connective tissue disease (1 source)Lateral epicondylitis of bilateral humerus; Translations: [Lateral epicondylitis, right elbow]07-08-2071YmcgokbkXjufu nervous system disorders (1 source)Radial tunnel syndrome; Translations: [Lesion of radial nerve, unspecified upper limb]55-50-2819QkdoyayGyhln non-traumatic joint disorders (3 sources)Pain in right elbow; Translations: [PAIN IN RIGHT ELBOW]Onset: 45-31-6982KegxkaflKhbhxeaw codes; unclassified (6 sources)History of operative procedure on elbow; Translations: [Other specified postprocedural states]38-56-2834UhsuntcrUwhekgnna-related disorders (20 sources)Nicotine dependence, cigarettes, uncomplicated; Translations: [Smoker]Onset: 659217-65-5896BqibbdrCmqlr infection (1 source)COVID-19; Translations: [COVID-19]Onset: 10-15-2021 Past or Other Problems Problem ClassificationProblemDateDocumented DateEpisodic/ChronicNausea and vomiting (8 sources)Nausea with vomiting, unspecified; Translations: [Nausea]Onset: 31-93-1764PvyhvwrnDbdnp connective tissue disease (4 sources)Other muscle spasm; Translations: [OTHER MUSCLE SPASM]Onset: 31-41-3298LjfasbndLhzad connective tissue disease (20 sources)Lateral epicondylitis of right humerus; Translations: [Lateral epicondylitis, right elbow]Onset: 522495-81-9143FgokhihjCudeh connective tissue disease (20 sources)Lateral epicondylitis of left humerus; Translations: [Lateral epicondylitis, left elbow]Onset: 07-01-2023 Resolved: 810303-67-7134NiaodvptMjblu nervous system disorders (10 sources)Postoperative pain ; Translations: [Other acute postprocedural pain] Onset: 146269-64-7572KfgdpgklXnnoj nervous system disorders (8 sources)Tremor; Translations: [Tremor, unspecified]Onset: 03-29-2024 31-15-0734HexetxfvKpdlo non-traumatic joint disorders (20 sources)Pain in elbow; Translations: [Pain in right elbow]Onset: 12-27-2022 57-45-8204RwbxlqcfLrjyq non-traumatic joint disorders (10 sources)Decreased range of elbow movement; Translations: [Stiffness of left elbow, not elsewhere classified]Onset: 658338-03-2955PpvwdkakXyjri screening for suspected conditions (not mental disorders or infectious disease) (20 sources)Abnormal cervical Papanicolaou smear; Translations: [Unspecified abnormal cytological findings in specimens from cervix uteri]Onset: 09-23-2022 36-56-6487VlbcmwprIcynx upper respiratory infections (1 source)Acute upper respiratory infection, unspecified; Translations: [ACUTE UP RESPIRATORY INFECTION UNS]Onset: 03-50-6817IxcdbeppFquyurtp codes; unclassified (1 source)Acquired absence of both cervix and uterus; Translations: [ACQUIRED ABSENCE BOTH CERVIX AND UTERUS]Onset: 65-22-3262Koexpprc Results Test NameValueInterpretationReference RangeFacilityBI MAMMOGRAM SCREENING TOMOSYNTHESIS BILATERALon 18-96-9648TS MAMMOGRAM SCREENING TOMOSYNTHESIS BILATERALThis is a summary report. The complete report is available in the patient's medical record. If you cannot access the medical record, please contact the sending organization for a detailed fax or copy. Examination: BI MAMMOGRAM SCREENING TOMOSYNTHESIS BILATERAL Clinical History: yearly Technique: Screening digital mammography study of both breasts was performed with 2-D and 3-D tomosynthesis imaging. No prior study available for comparison. Findings: There is no evidence of dominant spiculated mass, grouped microcalcifications, or skin thickening which would be suggestive of malignancy. A few benign-appearing calcifications are seen bilaterally. Axillary lymph nodes are noted bilaterally. IMPRESSION: Impression: No specific evidence of malignancy seen in either breast. BIRADS 2 - Benign DENSITY: The breasts are heterogeneously dense, which may obscure small masses FOLLOW-UP: Routine Screening Mamm ELECTRONICALLY SIGNED BY: Ganesh Finley M.D.NormalNot AvailableXR ELBOW RT MIN 3 VIEWSon 98-04-1610QE ELBOW RT MIN 3 VIEWSRIGHT ELBOW 3 VIEWS: 07/13/2022 10:17 AM EDT Clinical Data: Pain Comparison: No previous No evidence of acute fracture or dislocation. No bone destruction. No joint effusion is apparent at plain film. IMPRESSION: 1. No evidence of acute osseous process. Electronically authenticated by: RENATA HAIRSTON Date: 2022-07-13 10:57[facility] HospitalXR FOREARM RT 2Von 67-59-1872NN FOREARM RT 2VRIGHT FOREARM TWO VIEWS: 07/13/2022 10:17 AM EDT Clinical Data: Pain Comparison: No previous No evidence of acute fracture or dislocation. No focal bone destruction is evident. IMPRESSION: 1. No evidence of acute osseous process. Electronically authenticated by: RENATA HAIRSTON Date: 2022-07-13 10:59[facility] HospitalCBC AUTO DIFFon 04-60-8211EPMP #0.1 103/ulNormal0.0-0.1[facility] HospitalComment on above:Performed By: #### CBC #### [facility] [address] [address] [address] Boby Haleyphils/100 WBC (Bld)0.6 %Normal0.2-2.0[facility] Comment on above:Performed By: #### CBC #### [facility] [address] [address] [address] Boby Garland #0.2 103/ulNormal0.0-0.7The [facility] HospitalComment on above: Performed By: #### CBC #### [facility] [address] [place] [address] Dr. Boby Cruzosinophils/100 WBC (Bld)1.8 %Normal0.9-7.0[facility] Comment on above:Performed By: #### CBC #### [facility] [address] [place] [address] Dr. Boby Cruzrythrocyte distribution width (RBC) [Ratio]14.1 %Axtoos72.0-15.0 [facility] HospitalComment on above:Performed By: #### CBC #### [facility] [address] [place] [address] Dr. Boby RodHematocrit (Bld) [Volume fraction]44.2 %Mkyfug54.0-48.0The [facility] HospitalComment on above:Performed By: #### CBC #### [facility] [address] [place] [address] Dr. Boby RodHemoglobin (Bld) [Mass/Vol]14.4 g/rYUvzvij50.0-16.0The [facility] HospitalComment on above:Performed By: #### CBC #### [facility] [address] [place] [address] Dr. Boby Wynn #0.04 10e3/ulCritically high0.00-0.03[facility] Comment on above:Performed By: #### CBC #### [facility] [address] [place] [address] Dr. Boby Wynn %0.4 %Normal0.0-0.5The [facility] HospitalComment on above: Performed By: #### CBC #### [facility] [address] [place] [address] Dr. Boby Lozano #3.3 103/ulNormal1.2-3.8The [facility] HospitalComment on above:Performed By: #### CBC #### [facility] [address] [place] [address] Dr. Yilan ChangLymphocytes/100 WBC (Bld)30.6 %Ncfjns33.5-60.0The [facility] HospitalComment on above:Performed By: #### CBC #### [facility] [address] [place] [address] Dr. Boby Lynn DIFF REQNONormalThe [facility] HospitalComment on above: Performed By: #### CBC #### [facility] [address] [place] [address] Dr. Boby Gaspar (RBC) [Entitic mass]27.9 nfFpstdq85.7-34.0The [facility] HospitalComment on above:Performed By: #### CBC #### [facility] [address] [place] [address] Dr. Boby Gaspar (RBC) [Mass/Vol]32.6 g/sHVocgsz15.9-35.2The [facility] HospitalComment on above:Performed By: #### CBC #### [facility] [address] [place] [address] Dr. Boby Kraus (RBC) [Entitic vol]85.5 pPYfadxi82.0-99.0The [facility] HospitalComment on above:Performed By: #### CBC #### [facility] [address] [place] [address] Dr. Boby Sykes #0.6 103/ulNormal0.3-0.8The [facility] HospitalComment on above:Performed By: #### CBC #### [facility] [address] [place] [address] Dr. Boby Valerioocytes/100 WBC (Bld)5.8 %Normal1.7-12.0[facility] Comment on above:Performed By: #### CBC #### [facility] [address] [place] [address] Dr. Boby Mojica #6.6 103/ulCritically high1.4-6.5[facility] Comment on above:Performed By: #### CBC #### [facility] [address] [place] [address] Dr. Boby Yangutrophils/100 WBC (Bld)60.8 %Dzhjqz03.0-75.0The [facility] HospitalComment on above:Performed By: #### CBC #### [facility] [address] [address] [address] Boby Murguialet mean volume (Bld) [Entitic vol]11.2 fLNormal9.5-13.5The [facility] HospitalComment on above:Performed By: #### CBC #### [facility] [address] [address] [address] Boby RodPLT278 103/dbGulubp543-348Ryo [facility] HospitalComment on above: Performed By: #### CBC #### [facility] [address] [place] [address] Dr. Boby RodRBC5.17 106/ulNormal4.20-5.40The [facility] HospitalComment on above:Performed By: #### CBC #### [facility] [address] [place] [address] Dr. Boby RodWBC10.8 103/ulNormal4.0-11.0The [facility] HospitalComment on above:Performed By: #### CBC #### [facility] [address] [place] [address] Dr. Boby RodPROF CHEM 8 (BAS METB)on 78-56-0035Lvvkm gap [Moles/Vol]12.5 mmol/LNormalThe [facility] HospitalComment on above:Performed By: #### BMP #### [facility] [address] [place] [address] Dr. Boby RodCalcium [Mass/Vol]9.1 mg/dLNormal8.5-10.1[facility] Comment on above:Performed By: #### BMP #### [facility] [address] [place] [address] Dr. Boby RodChloride [Moles/Vol]104 mmol/QXmqcpi29-268Cvo [facility] Comment on above:Performed By: #### BMP #### [facility] [address] [address] [address] Boby RodCO2 [Moles/Vol]27.3 mmol/JWbgsxf52.0-32.0[facility] Comment on above:Performed By: #### BMP #### [facility] [address] [place] [address] Dr. Boby RodCreatinine [Mass/Vol]0.62 mg/dLNormal0.55-1.02The [facility] HospitalComment on above:Performed By: #### BMP #### [facility] [address] [address] [address] Landis ChangEGFR-AF BRITISH [place] ISLANDER>60Normal>=60The [facility] HospitalComment on above:Performed By: #### BMP #### [facility] [address] [place] [address] Dr. Boby CruzGFR-NON AF [place] ISLANDER>60Normal>=60The [facility] HospitalComment on above:Performed By: #### BMP #### [facility] [address] [place] [address] Dr. Boby RodGlucose [Mass/Vol]91 mg/hGEbwlph38-183[facility] Comment on above:Performed By: #### BMP #### [facility] [address] [place] [address] Dr. Boby RodPotassium [Moles/Vol]3.8 mmol/LNormal3.5-5.1[facility] Comment on above:Performed By: #### BMP #### [facility] [address] [address] [address] Boby RodSodium [Moles/Vol]140 mmol/FJsqcpv078-651Tet [facility] Comment on above:Performed By: #### BMP #### [facility] [address] [place] [address] Dr. Boby RodUrea nitrogen [Mass/Vol]11.0 mg/dLNormal7.0-18.0The [facility] HospitalComment on above:Performed By: #### BMP #### [facility] [address] [place] [address] Dr. Boby RodUrea nitrogen/Creatinine [Mass ratio]17.7 mg/mgNormalThGeorgetown Behavioral HospitalComment on above:Performed By: #### BMP #### [facility] [id number] Boby RodCovid-19 PCR ([facility])on 46-17-1719XZDA-CoV-2 (COVID-19) RNA DANII+probe Ql (Unsp spec)DetectedCritically abnormalNOT DETECTEDThe [facility] HospitalCommymichigan medical center alma on above:Result Comment: This test is not yet approved or cleared by the [place] FDA. When there are no FDA-approved or cleared tests available, and other criteria are met, FDA can make tests available under an emergency access mechanism called an Emergency Use Authorization (EUA). The EUA for this test is supported by the Drain of Health and Human Service's declaration that circumstances exist to justify the emergency use of in vitro diagnostics for the detection and/or diagnosis of the virusthat causes COVID-19. This EUA will remain in effect for the duration of the COVID-19 declaration ju stifying emergency of IVDs, unless it is terminated or revoked by the FDA (after which the test mayno longer be used).Performed By: #### CVDTB #### [facility] [id number] Boby Rod Vital Signs Date TimeVital SignValuePerforming XbgdcsmqcVmfddzpx50-24-7855 14:20-0400Body ammfmz612.8 Chad Perez MD Work Phone: NO[facility] CenterCdzudonwcr88-42-3980 14:20-0400Body mass index (BMI) [Ratio]32.62 kg/g3IikmhZuleika Perez MD Work Phone: NO[facility] CenterXuymskpcmh52-24-8038 14:20-0400Body rztnda95.54 kgZuleika Perez MD Work Phone: NO[facility] CenterXewrhllduw78-71-2787 14:20-0400Diastolic blood yttwkvel25 mm[Hg]Zuleika Perez MD Work Phone: NO[facility] CenterHhtxgxavim61-84-4752 14:20-0400Heart rate72 /min Zuleika Perez MD Work Phone: [facility] CenterXajkkarywh16-67-8804 14:20-8193YbI9% (BldA) [Mass fraction]99 %Zuleika Perez MD Work Phone: [facility] CenterMwsiifyrsd44-70-4763 14:20-0400Systolic blood gyejnhln607 mm[Hg]Zuleika Perez MD Work Phone: [facility] CenterUzwaaebplm77-95-0588 08:26-0500Body lubukl014.8 cmRattila Perez MD Work Phone: [facility] CenterOszcxjxxbv53-67-3198 08:26-0500Body mass index (BMI) [Ratio]31.1 kg/s0LtnriZuleika Perez MD Work Phone: [facility] CenterMypzhgrnyr53-69-5101 08:26-0500Body .46 kgZuleika Perez MD Work Phone: [facility] CenterRbuoomvnyl37-60-1188 08:26-0500Diastolic blood ximkbrye77 mm[Hg]Zuleika Perez MD Work Phone: [facility] CenterAqokqnkmsr10-52-4109 08:26-0500Heart rate84 /min Zuleika Perez MD Work Phone: [facility] CenterLomqmwjhpi50-57-5599 08:26-5379TeF2% (BldA) [Mass fraction]100 %Zuleika Perez MD Work Phone: [facility] CenterDslnuecdbg02-92-1127 08:26-0500Systolic blood tjotsdeb206 mm[Hg]Zuleika Perez MD Work Phone: [facility] CenterKppibptthb82-27-2538 08:02-0500Body ftqivh491.8 cmRohini Gonzales PA Work Phone: [facility] CenterRosuxvotve69-76-0542 08:02-0500Body mass index (BMI) [Ratio]30.42 kg/v0UvvlpRohini Gonzales PA Work Phone: NO[facility] CenterGbbwgoovon64-35-0522 08:02-0500Body qeuhah99.65 kgKaren Hemmer PA Work Phone: no[facility] CenterUkugwptidq83-90-2410 08:02-0500Diastolic blood mm[Hg]Rohini Luis Fesau PA Work Phone: NO[facility] CenterFlpppewbgq10-46-6940 08:02-0500Heart rate67 /min Rohini Luis Fesau PA Work Phone: noK[facility] CenterHkyasgxmgl23-39-1699 08:02-6765GcU9% (BldA) [Mass fraction]98 %Rohini Kernsesau PA Work Phone: NO[facility] CenterOmbhgmwydv41-42-5090 08:02-0500Systolic blood toaezeza234 mm[Hg]Rohini Lusi Fesau PA Work Phone: [facility] CenterEskgmzoesw33-84-4221 09:28-0400Body gqawrz381.8 Chad Perez MD Work Phone: [facility] CenterBvvdcgrvaj67-21-7722 09:28-0400Body mass index (BMI) [Ratio]30.59 kg/t9UwvlnZuleika Perez MD Work Phone: [facility] CenterOyqpnuhfqd71-68-3215 09:28-0400Body hwdiae50.1 kg Zuleika Perez MD Work Phone: [facility] CenterAjljtiakgv49-18-7017 09:28-0400Diastolic blood gqzqyune70 mm[Hg]Zuleika Perez MD Work Phone: [facility] CenterOgdptgwylp59-78-0964 09:28-0400Heart rate80 /min Zuleika Perez MD Work Phone: [facility] CenterAxxmbvjsxg40-10-8369 09:28-9506SeF9% (BldA) [Mass fraction]99 %Zuleika Perez MD Work Phone: [facility] CenterSeefwfnfkd33-46-9407 09:28-0400Systolic blood lxpciwyp873 mm[Hg]Zuleika Perez MD Work Phone: NO[facility] CenterPahuwsmafv82-42-5538 08:58-0500Body uqxovu922.8 cmJr. Stepanic DO Work Phone: NO[facility] CenterIpbbsoutpg25-92-9934 08:58-0500Body mass index (BMI) [Ratio]27.04 kg/m2Jr. Stepanic DO Work Phone: [facility] Uhtdhpkltw93-65-0514 08:58-0500Body .58 kgJr. Stepanic DO Work Phone: [facility] Encounters Encounter DateEncounter TypeCare ProviderFacilityStart: 08-18-2024 End: 83-76-9288Yevghpqtu encounterKim Trang Shaikh NP Work Phone: [facility] FMComment on above:FYIStart: 08-04-2024 End: 17-71-6931BizqbtMnbod M Alda MD Work Phone: [facility] FMComment on above:Generalized anxiety disorder (CMS/HCC)Start: 08-03-2024 End: 48-94-0203Ykjhoh outpatient visit 25 minutesZuleika Perez MD Work Phone: [facility] CI FMComment on above:Left elbow pain (Primary Dx); Intractable chronic migraine with aura with status migrainosus (CMS/HCC); Generalized anxiety disorder (CMS/HCC)Start: 08-03-2024 End: 24-08-6711hcyyfcyphlYKABA M ALDANot AvailableStart: 03-29-2024 End: 22-71-2916Eixupu outpatient visit 25 minutesZuleika Perez MD Work Phone: [facility] CI FMComment on above:Shakiness (Primary Dx); Generalized anxiety disorder (CMS/HCC); Cigarette nicotine dependence with nicotine-induced disorderStart: 03-29-2024 End: 69-77-9088rjszmjuesjCJSWO M ALDANot AvailableStart: 02-17-2024 End: 09-04-3529Lmalgenavin FRAGA Work Phone: [facility] CI FMStart: 02-17-2024 End: 55-24-6878Kvwxfxnavin FRAGA Work Phone: [facility] CI FMStart: 02-17-2024 End: 43-12-6850frzlsbihimKYVFZJerry Rodriguez AvailableStart: 02-17-2024 End: 33-34-4280Vykqyf outpatient visit 25 minutesRohini FRAGA Work Phone: noMS CI FMComment on above:Intractable chronic migraine with aura with status migrainosus (CMS/HCC) (Primary Dx); Left elbow pain; Post-operative pain; Decreased range of motion of elbow, leftStart: 01-15-2024 End: 85-24-4490brpwcpjihcVJYNT M ALDANot AvailableStart: 12-16-2023 End: 66-21-8432Aksbcc outpatient visit 25 minutesZuleika Perez MD Work Phone: noMS CI FMComment on above:Generalized anxiety disorder (CMS/HCC) (Primary Dx); Encounter for screening mammogram for malignant neoplasm of breast; Chronic migraine without aura, not intractable, without status migrainosus (CMS/HCC); SmokerStart: 12-16-2023 End: 61-23-9156rsqdsveqgmQCINS M ALDANot AvailableStart: 12-09-2023 End: 80-15-8556Nkfpia Phoenix FRAGA Work Phone: [facility] FB ORTHOPAEDICSStart: 12-09-2023 End: 93-30-8372Fgagls Phoenix FRAGA Work Phone: noms FB ORTHOPAEDICSStart: 12-09-2023 End: 56-52-3762Fxptcm follow up visit related to original Michi FRAGA Work Phone: noms FB ORTHOPAEDICSComment on above:History of epicondylectomy (Primary Dx)Start: 12-09-2023 End: 94-87-1907qabwoghidcXTWMZTZ J MEYERNot AvailableStart: 11-26-2023 End: 81-73-9772Jhckwv Phoenix FRAGA Work Phone: noms FB ORTHOPAEDICSStart: 11-26-2023 End: 11-55-1323Imfnrq Phoenix FRAGA Work Phone: noms JEFFREY ORTHOPAEDICSStart: 11-26-2023 End: 09-31-8865Lmwyyk follow up visit related to original Michi Sullivan Miguel FRAGA Work Phone: noms FB ORTHOPAEDICSComment on above:History of epicondylectomy (Primary Dx)Start: 11-26-2023 End: 75-95-2130obaooakmbnNKGJYXD J MEYERNot AvailableStart: 10-29-2023 End: 58-62-6953Frszzp Artemmagalys FRAGA Work Phone: noms JEFFREY ORTHOPAEDICSStart: 10-29-2023 End: 33-72-7473Oqtvpv Artemmagalys FRAGA Work Phone: noms JEFFREY ORTHOPAEDICSStart: 10-29-2023 End: 50-80-1878Djochr follow up visit related to original Michi Sullivan Miguel FRAGA Work Phone: noms FB ORTHOPAEDICSComment on above:History of epicondylectomy (Primary Dx)Start: 10-29-2023 End: 72-39-7139vxpiikzavtVFOINSM J MEYERNot AvailableStart: 10-14-2023 End: 83-47-1496tzdzintxjiKNNIEML J MEYERNot AvailableStart: 09-26-2023 End: 41-75-7384yyrvknswsiLFDPWAI J MEYERNot AvailableStart: 09-02-2023 End: 05-89-0874qhqfudzudjYWZYA ALDANot AvailableStart: 08-27-2023 End: 58-15-0861ejusdammapWKKIM MAS AvailableStart: 04-02-2023 End: 58-98-3586Petyii outpatient visit 25 minutesJr. Kim Dixon DO Work Phone: noms FB ORTHOPAEDICSComment on above:Pain of both elbows (Primary Dx); Right elbow pain; Lateral epicondylitis of both elbows; Radial tunnel syndromeStart: 07-13-2022 End: 08-60-3421koutuadqdzFLNBIV MARIOLA .Facility:C8Xdwhs: 03-04-2022 End: 03-71-5022ngjauvgvftSBVCKOI D KATKOFacility:I5Zxluq: 12-24-2021 End: 94-34-4535eypujqadexFAUPHM RODRIGUEZ .Facility:F3Jhgdq: 11-08-2021 End: 67-28-7164hsxqacynxuPV MEAGHAN Escobar REINECKFacility:Q2Flpwk: 10-13-2021 End: 34-50-5117ejrwsjxbvrWZBXSR RODRIGUEZ .Facility: Procedures DateProcedureProcedure DetailPerforming ClinicianStart: 61-10-0640Zozkrhqlmpv Rohini FRAGA Work Phone: Start: 09-23-2022H/O: hysterectomyHistory of hysterectomyJr. Stepanic DO Work Phone: Plan of Treatment DateCare ActivityDetailAuthorStart: 15-82-6865Ufacihyoq for malignant neoplasm of breastMammogramNOMS HealthcareStart: 2024 End: 63-49-2707Kwnmpoh encounter gekpifkfm85/06/2025 9:30 AM EDT Office Visit [facility] [address] [facility] [address] [place] [address] Zuleika Perez MD [address] [facility] [address] [place] [address] NOM[facility] CI FMStart: 03-16-2024 End: 98-10-6506Dvoufyd encounter wnbwyrioi08/14/2025 9:15 AM EST Office Visit [facility] [address] [facility] [address] [place] [address] Zuleika Perez MD [address] [facility] [address] [place] [address] N[facility] CI FMStart: 12-16-2023 End: 52-31-0745HR Breast - bilateral ScreeningBilateral screening mammogram Imaging Routine Encounter for screening mammogram for malignant neoplasm of breast Expected: 12/16/2023, Expires: 02/14/2025[facility] Work Phone: Comment on above:Expected: 12/16/2023, Expires: 02/14/2025Start: 12-09-2023 End: 59-43-9709Hdgdwmn encounter xqrppowso78/08/2024 9:00 AM EDT Office Visit [facility] [address] [place] [address] Trever Rivera PA [address] [facility] [address] [place] [address] History of epicondylectomy (Primary Dx)[facility] Comment on above:History of epicondylectomy (Primary Dx)Start: 11-26-2023 End: 93-48-4082Hprxgif encounter procedureNOCHILDREN'S MERCY [facility] ORTHOPAEDICSComment on above: History of epicondylectomy (Primary Dx)Start: 10-29-2023 End: 15-77-7550Afjsijk encounter gwuzgagvm04/28/2024 10:00 AM EDT Office Visit [facility] [address] [place] [address] Trever Rivera PA [address] [facility] [address] [place] [address] History of epicondylectomy (Primary Dx)[facility] Comment on above:History of epicondylectomy (Primary Dx)Start: 04-30-2023 End: 84-44-2849Zkguoew encounter tusmefgss67/28/2024 10:00 AM EST Office Visit [facility] [address] [place] [address] Jr. Kim Dixon, [address] [facility] [address] [place] [address] NOMS ORTHOPAEDICSStart: 2022 Screening for malignant neoplasm of breastM[facility]NOK[facility] Immunizations Immunization DateImmunizationNotesCare BcvkdbcfYpjudwjv00-11-0050gybrslxpt, injectable, quadrivalent, contains preservativeJrAlbert Dixon DO Work Phone: [facility] CenterPjxgnfsdlo89-89-4599qmmfwgqzh, injectable, quadrivalent, preservative freeJr. Stepanic DO Work Phone: [facility] Payers DatePayer CategoryPayerPolicy ID2025Medicaid (Managed Care)[facility] [employer] [id number] Subscriber Plan / Payer (Effective 2022-Present) Name: Guillermina Johnston Relation to Subscriber: Self Name: Guillermina Johnston Payer ID: Not on file Type: Not on file Address: [address] [place] [id number] [facility] [id number] 2022- [phone] [address] [place] [id number] 2.0.1.870692.3.57[id number] 2.0.1.118195.3.57[id number] 2.0.1.579954.3.579.[id number] 2.0.1.525089.3.57[id number] 2..1.050943.3.57[id number] 2.0.1.818564.3.579.[id number] 2..1.541677.3.57[id number] 2..1.643837.3.579.[id number] 2..1.872315.3.579.2.663996-64-8517Gdeagkd6939041 2..1.572492.3.57[id number] 2..1.710151.3.579.2.2[id number] 2..1.593028.3.579.2.[id number] 2..1.944709.3.579.[id number] 2..1.365789.3.579.2.007103-95-2845Tjinvxa1962349 2..1.080670.3.57[id number] 2..1.878560.3.579.2.402070-22-4270Ueimeyl8115723 2..1.798700.3.579.2.186529-36-0619HommkmrFNLO6340896623-80-2922Ykfkgxr [id number] Social History DateTypeDetailFacilityStart: 10-16-2022 End: 18-56-5564Wguqqin smoking status NHISSmokes tobacco dailyFILLMORE COMMUNITY [facility]ICAL [facility]ENTER Healthcare History of tobacco useCigarette SmokerNONJ HealthcareStart: 10-16-2022 End: 49-13-0345Qadmgjdtdw smoked current (pack per day) - Eimncgxu1QBNB HealthcareStart: 10-16-2022 End: 67-68-6557Tmjxlcw use and exposureSmokeless tobacco non-userNONJ Healthcare Start: 04-02-2023 End: 58-41-2443Wegyqwx intakeEx-drinker (finding)[facility] HealthcareStart: 04-02-2023 End: 74-57-3778Vbuytlx use panelNONJ HealthcareStart: 26-37-2759Ginivbt Comment 11-20 cigarettes/dayNONJ HealthcareStart: 60-87-6287Gatlsfk CommentCaffeine intake: 2-3 cups per dayFILLMORE COMMUNITY MEDICAL CENTER HealthcareStart: 31-56-9106Jgv Assigned At BirthNot on [facility] Clinical Notes 04-02-2023 to 08-23-2024 Note Date & AvrtFlxsZnweytfh51-14-2133 Telephone encounter Note* Telephone Encounter - Elisabet Shaikh NP - 08/23/2024 3:14 PM EDT I did see Lana Yoon at an office visit. We added bactroban ointment to the wound and doxycycline. I did see her bruised area. No new orders for this. She has follow up with her surgeon upcoming. [facility] Work Phone: [phone] 189-209706-23-2025 Miscellaneous Notes* Telephone Encounter - Elisabet Shaikh NP - 08/23/2024 3:14 PM EDT I did see Lana Yoon at an office visit. We added bactroban ointment to the wound and doxycycline. I did see her bruised area. No new orders for this. She has follow up with her surgeon upcoming. * Telephone Encounter - Linda Sawyer MA - 08/18/2024 3:39 PM EDT Hi, this is Suzi. I am a nurse with the [facility] just calling in regards to a mutual patient willing Car, I did want to make you guys I seen her Friday, but the offices were closed.So I did not want to make you aware of a fall she had when she got home from it was rehab. Right. Rehab and she was getting off the toilet and turning the corner in the bathroom and fell on her, but she does have a bruise to the left back area, she does. See you guys in office tomorrow. So I was hoping you guys could take a look at that and her incision site. If you have any questions, please? Feel free to give me a call back at [phone]. Thank you. documented in this encounterEllis Fischel Cancer CenterPkbimuwghl43-79-7958 Telephone encounter Note* Telephone Encounter - Linda Sawyer MA - 08/18/2024 3:39 PM EDT Hi, this is Suzi. I am a nurse with the [facility] just calling in regards to a mutual patient willing Car, I did want to make you guys I seen her Friday, but the offices were closed.So I did not want to make you aware of a fall she had when she got home from it was rehab. Right. Rehab and she was getting off the toilet and turning the corner in the bathroom and fell on her, but she does have a bruise to the left back area, she does. See you guys in office tomorrow. So I was hoping you guys could take a look at that and her incision site. If you have any questions, please? Feel free to give me a call back at [phone]. Thank you. [facility] Cancer CenterDgfgagttog81-75-5464 Telephone encounter Note* Telephone Encounter - PHILLY Poon - 08/04/2024 11:02 AM EDT OARRS reviewed, Rx sent into patient's pharmacy. [facility] Cancer CenterUpghvaepsj03-52-2319 Miscellaneous Notes* Telephone Encounter - PHILLY Poon - 08/04/2024 11:02 AM EDT OARRS reviewed, Rx sent into patient's pharmacy. documented in this encounterEllis Fischel Cancer CenterWakettxahn23-22-4558 History of Present illness Narrative* Zuleika Perez MD - 08/03/2024 2:34 PM EDTAssociated Problem(s): Left elbow pain Dr. Dixon Still cannot straighten elbow Weight stretch [place] * Zuleika Perez MD - 08/03/2024 2:30 PM EDT Images from the original note were not included. Subjective Patient ID: Guillermina Johnston is a 43 y.o. female who presents for Anxiety. Pt is not working right now, pains in elbow is still there after surgery, it did take away numbnessand tingling Pt states medication is helping the anxiety and migraines Anxiety Presents for follow-up visit. Patient reports no chest pain, compulsions, nausea, palpitations or shortness of breath. Symptoms occur most days. The severity of symptoms is mild. The quality of sleepis good. Nighttime awakenings: occasional. Compliance with medications is 76-100%. Migraine This is a chronic problem. The current episode started more than 1 year ago. The problem occurs monthly. Pertinent negatives include no abdominal pain, coughing, fever, nausea or vomiting. Current Outpatient Medications on File Prior to Visit Medication Sig Dispense Refill ALPRAZolam (Xanax) 0.5 MG tablet Take 1 tablet (0.5 mg) by mouth every 12 (twelve) hours 60 tablet 0 cyclobenzaprine (Flexeril) 10 MG tablet Take 1 tablet (10 mg) by mouth in the morning and 1 tablet (10 mg) in the evening and 1 tablet (10 mg) before bedtime. Do all this for 10 days. 30 tablet 0 fremanezumab (Ajovy) 225 MG/1.5ML auto-injector Inject 1 pen (225 mg) under the skin every 30 (thirty) days 4.5 mL 3 Rimegepant Sulfate (Nurtec) [address] 75 mg under the tongue if needed (every other day) 16 tablet 3 [DISCONTINUED] citalopram (CeleXA) 20 MG tablet 1 (one) time each day at the same time. No current facility-administered medications on file prior to visit. I have reviewed and reconciled the history and medication list with the patient today. Allergies Allergen Reactions Ciprofloxacin Other Reaction(s): Unknown Penicillin V Other Reaction(s): Unknown Social History Tobacco Use Smoking status: Every Day Current packs/day: 1.00 Types: Cigarettes Smokeless tobacco: Never Tobacco comments: 11-20 cigarettes/day Substance Use Topics Alcohol use: Not Currently Comment: Caffeine intake: 2-3 cups per day Family History Problem Relation Name Age of Onset Lung cancer Other Adoptive mother Past Medical History: Diagnosis Date Anxiety Chronic migraine without aura, not intractable, without status migrainosus ([facility]) 09/23/2022 COVID 10/13/2021 Positive History of tremor Lateral epicondylitis of left elbow 07/01/2023 Past Surgical History: Procedure Laterality Date DILATION AND CURETTAGE OF UTERUS 05/08/2018 D and C Hysteroscopy Dr. Boo [facility] HYSTERECTOMY 10/12/2018 dr boo LATERAL EPICONDYLE RELEASE Left 09/12/2023 (L) ELBOW ; DR DIXON TUBAL LIGATION 08/04/2014 Visit Vitals BP 118/78 Pulse 72 Ht 5' 4.5 Wt 193 lb SpO2 99% BMI 32.62 kg/m Smoking Status Every Day BSA 2 m Review of Systems Constitutional: Negative for fever. Respiratory: Negative for cough and shortness of breath. Cardiovascular: Negative for chest pain and palpitations. Gastrointestinal: Negative for abdominal pain, nausea and vomiting. Objective Physical Exam Constitutional: General: She is not in acute distress. Appearance: Normal appearance. She is well-developed. HENT: Head: Normocephalic and atraumatic. Eyes: General: No scleral icterus. Conjunctiva/sclera: Conjunctivae normal. Cardiovascular: Rate and Rhythm: Normal rate and regular rhythm. Heart sounds: Normal heart sounds. No murmur heard. Pulmonary: Effort: Pulmonary effort is normal. No respiratory distress. Breath sounds: Normal breath sounds. No wheezing, rhonchi or rales. Musculoskeletal: Left elbow: Decreased range of motion: Unable to fully extend elbow. Skin: General: Skin is warm and dry. Neurological: General: No focal deficit present. Mental Status: She is alert and oriented to person, place, and time. Psychiatric: Mood and Affect: Mood normal. Behavior: Behavior normal. Assessment/Plan Problem List Items Addressed This Visit Generalized anxiety disorder (CMS/HCC) Patient's Medicine is effective at controlling symptoms at current dose and frequency. PDMP reviewed with no evidence of overuse and abuse D/W patient to avoid use of benzodiazepines when consuming alcohol Advised against operating heavy machinery and driving long distances while on medicines. Left elbow pain - Primary Dr. Dixon Still cannot straighten elbow Weight stretch [place] Intractable chronic migraine with aura with status migrainosus (CMS/HCC) [facility] samples given Follow up in about 4 months (around 12/03/2024) for Anxiety Meds F/U. * Zuleika Perez MD - 08/03/2024 2:26 PM EDTAssociated Problem(s): Intractable chronic migraine with aura with status migrainosus (CMS/HCC) [facility] samples given * Zuleika Perez MD - 08/03/2024 2:26 PM EDTAssociated Problem(s): Generalized anxiety disorder (CMS/HCC) Patient's Medicine is effective at controlling symptoms at current dose and frequency. PDMP reviewed with no evidence of overuse and abuse D/W patient to avoid use of benzodiazepines when consuming alcohol Advised against operating heavy machinery and driving long distances while on medicines. documented in this encounterEllis Fischel Cancer CenterTkvzhwrikq43-37-7257 History of Present illness Narrative* Zuleika Perez MD - 03/29/2024 8:42 AM ESTAssociated Problem(s): Cigarette nicotine dependence with nicotine-induced disorder Discussed smoking cessation with the patient. Encouraged patient to try to cut back gradually and soon quit smoking. Discussed ways to quit smoking including gum, patches, medication, and gradually reducing the number of cigarettes smoked daily. 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 Patient voiced understanding. Benefits of cessation, both health and financial, were reviewed. * Zuleika Perez MD - 03/29/2024 8:41 AM ESTAssociated Problem(s): Shakiness Was diagnosed with panic attacks after ER visit * Zuleika Perez MD - 03/29/2024 8:36 AM ESTAssociated Problem(s): Generalized anxiety disorder (CMS/HCC) Patient's Medicine is effective at controlling symptoms at current dose and frequency. PDMP reviewed with no evidence of overuse and abuse D/W patient to avoid use of benzodiazepines when consuming alcohol Advised against operating heavy machinery and driving long distances while on medicines. * Zuleika Perez MD - 03/29/2024 8:30 AM EST Images from the original note were not included. Subjective Patient ID: Guillermina Johnston is a 43 y.o. female who presents for Anxiety. Pt does get ajovy through [facility] for three months Pt did go to ER on 03/09 for poss. A panic attack pt was having a severe panic attack whole body shaking Having issues with sister in law and worked at same place Anxiety Presents for follow-up visit. Patient reports no chest pain, compulsions, nausea, palpitations or shortness of breath. Symptoms occur most days. The severity of symptoms is mild. The quality of sleepis good. Nighttime awakenings: occasional. Compliance with medications is 76-100%. Migraine This is a chronic problem. The current episode started more than 1 year ago. The problem occurs monthly. Pertinent negatives include no abdominal pain, coughing, fever, nausea or vomiting. Current Outpatient Medications on File Prior to Visit Medication Sig Dispense Refill citalopram (CeleXA) 20 MG tablet 1 (one) time each day at the same time. cyclobenzaprine (Flexeril) 10 MG tablet Take 1 tablet (10 mg) by mouth in the morning and 1 tablet (10 mg) in the evening and 1 tablet (10 mg) before bedtime. Do all this for 10 days. 30 tablet 0 fremanezumab (Ajovy) 225 MG/1.5ML auto-injector Inject 1 pen (225 mg) under the skin every 30 (thirty) days 4.5 mL 3 Rimegepant Sulfate (Nurtec) [address] 75 mg under the tongue if needed (every other day) 16 tablet 3 [DISCONTINUED] ALPRAZolam (Xanax) 0.5 MG tablet Take 1 tablet (0.5 mg) by mouth every 12 (twelve) hours 60 tablet 0 No current facility-administered medications on file prior to visit. I have reviewed and reconciled the history and medication list with the patient today. Allergies Allergen Reactions Ciprofloxacin Other Reaction(s): Unknown Penicillin V Other Reaction(s): Unknown Social History Tobacco Use Smoking status: Every Day Current packs/day: 1.00 Types: Cigarettes Smokeless tobacco: Never Tobacco comments: 11-20 cigarettes/day Substance Use Topics Alcohol use: Not Currently Comment: Caffeine intake: 2-3 cups per day Family History Problem Relation Name Age of Onset Lung cancer Other Adoptive mother Past Medical History: Diagnosis Date Anxiety Chronic migraine without aura, not intractable, without status migrainosus ([facility]) 09/23/2022 COVID 10/13/2021 Positive History of tremor Lateral epicondylitis of left elbow 07/01/2023 Past Surgical History: Procedure Laterality Date DILATION AND CURETTAGE OF UTERUS 05/08/2018 D and C Hysteroscopy Dr. Boo [facility] HYSTERECTOMY 10/12/2018 dr boo LATERAL EPICONDYLE RELEASE Left 09/12/2023 (L) ELBOW ; DR DIXON TUBAL LIGATION 08/04/2014 Visit Vitals BP 128/80 Pulse 84 Ht 5' 4.5 Wt 184 lb SpO2 100% BMI 31.10 kg/m Smoking Status Every Day BSA 1.95 m Review of Systems Constitutional: Negative for chills, fatigue and fever. Respiratory: Negative for cough, chest tightness, shortness of breath and wheezing. Cardiovascular: Negative for chest pain, palpitations and leg swelling. Gastrointestinal: Negative for abdominal pain, constipation, diarrhea, nausea and vomiting. Skin: Negative for rash. Neurological: Negative for headaches. Objective Physical Exam Constitutional: General: She is not in acute distress. Appearance: Normal appearance. She is well-developed. HENT: Head: Normocephalic and atraumatic. Eyes: General: No scleral icterus. Conjunctiva/sclera: Conjunctivae normal. Cardiovascular: Rate and Rhythm: Normal rate and regular rhythm. Heart sounds: Normal heart sounds. No murmur heard. Pulmonary: Effort: Pulmonary effort is normal. No respiratory distress. Breath sounds: Normal breath sounds. No wheezing, rhonchi or rales. Musculoskeletal: Left elbow: Decreased range of motion: Unable to fully extend elbow. Skin: General: Skin is warm and dry. Neurological: General: No focal deficit present. Mental Status: She is alert and oriented to person, place, and time. Psychiatric: Mood and Affect: Mood normal. Behavior: Behavior normal. Assessment/Plan Problem List Items Addressed This Visit Generalized anxiety disorder (CMS/HCC) Patient's Medicine is effective at controlling symptoms at current dose and frequency. PDMP reviewed with no evidence of overuse and abuse D/W patient to avoid use of benzodiazepines when consuming alcohol Advised against operating heavy machinery and driving long distances while on medicines. Relevant Medications ALPRAZolam (Xanax) 0.5 MG tablet Shakiness - Primary Was diagnosed with panic attacks after ER visit Cigarette nicotine dependence with nicotine-induced disorder Discussed smoking cessation with the patient. Encouraged patient to try to cut back gradually and soon quit smoking. Discussed ways to quit smoking including gum, patches, medication, and gradually reducing the number of cigarettes smoked daily. Discussed potential health risks of prison smoking. Patient voiced understanding. Benefits of cessation, both health and financial, were reviewed. Follow up in about 3 months (around 06/27/2024) for Anxiety Meds F/U. documented in this encounterEllis Fischel Cancer CenterKjdjlinooy01-23-0144 History of Present illness Narrative* PHILLY Poon - 02/17/2024 8:00 AM EST Images from the original note were not included. HPI Follow-up Additional comments: [facility] Er 02/09/24 dx: migraine DESAI no med changes discharged home Last edited by Brandee Hays LPN on 02/17/2024 8:02 AM. Subjective Patient ID: Guillermina Johnston is a 43 y.o. female who presents for Follow-up ([facility] Er 02/09/24 dx: migraine DESAI no med changes discharged home). Flowsheet Row Patient Outreach from 02/12/2024 in [facility] with Jennifer Lind LPN Hospital Information ED, Hospital or Shelter Facility Discharge? ED Patient has been contacted within 1 week of being seen in the ED Yes Diagnosis migraine Discharge Date 02/06/24 Discharged To: Home Setting Discharge Hospital [facility] Engagement Call Start Time 1554 Admission Date 02/06/24 Medications Discharge medications reviewed and reconciled from hospital? Yes Is the patient having any side effects they believe may be caused by any medication additions or changes? No Does the patient have all medications ordered at discharge? Not applicable Is the patient taking all medications as directed (includes completed medication regime)? Yes Appointments Does the patient have a primary care provider? Yes Has the patient kept scheduled appointments due by today? Yes Self Management Patient Teaching Does the patient have access to their discharge instructions? Yes What is the patient's perception of their health status since discharge? Same Is the patient/caregiver able to teach back the hierarchy of who to call/visit for symptoms/problems? PCP, Specialist, Home Health nurse, Urgent Care, ED, 911 Yes Wrap Up Is the patient/caregiver familiar with Advance Care Planning? No Would the patient like more information on Advance Care Planning? No Call End Time 1622 Pt has had migraine for 3 weeks using Nurtec every other day, pt states Dr Chris has not been able to get her ins co to cover Aimovig. She has been getting samples from office when available. Allergic to control. Excedrin and other OTC ineffective. Triptans are not effective, Imitrex,Rizatriptan. Has also tried Fioricet, Propranolol without relief. Has been on Topamax without relief. Aimovig decreases her migraines to 2-3 migraines a month. ER gave her IV Toradol, Zofran, Solu-Medrol, and Benadryl and that brought pain to 2/10. Migraines cause sharp stabbing pain, photophobia, phonophobia, nausea, eye twitches. Does get an aura, spots in her vision. Migraines are impacting her job, gets pointed every time she misses, even with doctor's note. Current Outpatient Medications on File Prior to Visit Medication Sig Dispense Refill ALPRAZolam (Xanax) 0.5 MG tablet Take 1 tablet (0.5 mg) by mouth every 12 (twelve) hours 60 tablet 0 citalopram (CeleXA) 20 MG tablet 1 (one) time each day at the same time. Rimegepant Sulfate (Nurtec) [address] 75 mg under the tongue if needed (every other day) 16 tablet 3 cyclobenzaprine (Flexeril) 10 MG tablet Take 1 tablet (10 mg) by mouth in the morning and 1 tablet (10 mg) in the evening and 1 tablet (10 mg) before bedtime. Do all this for 10 days. 30 tablet 0 No current facility-administered medications on file prior to visit. I have reviewed and reconciled the history and medication list with the patient today. Allergies Allergen Reactions Ciprofloxacin Other Reaction(s): Unknown Penicillin V Other Reaction(s): Unknown Social History Tobacco Use Smoking status: Every Day Current packs/day: 1.00 Types: Cigarettes Smokeless tobacco: Never Tobacco comments: 11-20 cigarettes/day Substance Use Topics Alcohol use: Not Currently Comment: Caffeine intake: 2-3 cups per day Family History Problem Relation Name Age of Onset Lung cancer Other Adoptive mother Past Medical History: Diagnosis Date Anxiety Chronic migraine without aura, not intractable, without status migrainosus ([facility]) 09/23/2022 COVID 10/13/2021 Positive History of tremor Lateral epicondylitis of left elbow 07/01/2023 Past Surgical History: Procedure Laterality Date DILATION AND CURETTAGE OF UTERUS 05/08/2018 D and C Hysteroscopy Dr. Boo [facility] HYSTERECTOMY 10/12/2018 dr boo LATERAL EPICONDYLE RELEASE Left 09/12/2023 (L) ELBOW ; DR DIXON TUBAL LIGATION 08/04/2014 Visit Vitals BP 122/72 Pulse 67 Ht 5' 4.5 Wt 180 lb SpO2 98% BMI 30.42 kg/m Smoking Status Every Day BSA 1.93 m Review of Systems Constitutional: Negative for chills, fatigue and fever. Respiratory: Negative for cough, shortness of breath and wheezing. Cardiovascular: Negative for chest pain, palpitations and leg swelling. Gastrointestinal: Negative for abdominal pain, constipation, diarrhea, nausea and vomiting. Skin: Negative for rash. Neurological: Positive for headaches. Objective Physical Exam Constitutional: General: She is not in acute distress. Appearance: Normal appearance. She is well-developed. HENT: Head: Normocephalic and atraumatic. Eyes: General: No scleral icterus. Conjunctiva/sclera: Conjunctivae normal. Cardiovascular: Rate and Rhythm: Normal rate and regular rhythm. Heart sounds: Normal heart sounds. No murmur heard. Pulmonary: Effort: Pulmonary effort is normal. No respiratory distress. Breath sounds: Normal breath sounds. No wheezing, rhonchi or rales. Musculoskeletal: Left elbow: Decreased range of motion (Unable to fully extend elbow). Comments: Well healed, maturing linear surgical scar lateral aspect of left elbow. Skin: General: Skin is warm and dry. Neurological: General: No focal deficit present. Mental Status: She is alert and oriented to person, place, and time. Psychiatric: Mood and Affect: Mood normal. Behavior: Behavior normal. Assessment/Plan Diagnoses and all orders for this visit: Intractable chronic migraine with aura with status migrainosus (CMS/HCC) - fremanezumab (Ajovy) 225 MG/1.5ML auto-injector; Inject 1 pen (225 mg) under the skin every 30 (thirty) days - ketorolac (Toradol) injection 60 mg Provided pt with Toradol 60 mg IM today, she tolerated this well. Rx sent for Ajovy to [facility] for patient. Patient has been on several different medications (see HPI), only medication that has provided lasting relief has been Aimovig. Insurance coverage appears better for the Ajovy per her formulary. If unable to get the Ajovy, will send Aimovig to local pharmacy and she can use a copay card. Referral to Neurology if unable to get Ajovy or Aimovig for patient. Negatively impacting quality of life and placing her employment in jeopardy. Left elbow pain Aggravated by repetitive motions. Post-operative pain Persisting since surgery in August. Decreased range of motion of elbow, left Pt still does not have full ROM of left elbow from surgery in August of this year. Has been released from Orthopedic care. Patient's 40 hour work week restrictions are up on 03/02. She states her employer prefers the work restriction to be 8 hour shift, so that she cannot be forced to have over time. She will drop off paper work at the end of the month and restrictions for 8 hour shifts only will be completed for the month of August. The patient was seen today in follow up of recent hospital ER visit. All available hospital recordswere reviewed and discussed with the patient. Any changes to plan are noted above. Follow up for Appointment As Scheduled. documented in this encounterEllis Fischel Cancer [id number] History of Present illness Narrative* Zuleika Perez MD - 12/16/2023 9:40 AM EDTAssociated Problem(s): Smoker Discussed smoking cessation with the patient. Encouraged patient to try to cut back gradually and soon quit smoking. Discussed ways to quit smoking including gum, patches, medication, and gradually reducing the number of cigarettes smoked daily. 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 Patient voiced understanding. Benefits of cessation, both health and financial, were reviewed. * Zuleika Perez MD - 12/16/2023 9:38 AM EDTAssociated Problem(s): Generalized anxiety disorder ([facility]) Patient's Medicine is effective at controlling symptoms at current dose and frequency. PDMP reviewed with no evidence of overuse and abuse D/W patient to avoid use of benzodiazepines when consuming alcohol Advised against operating heavy machinery and driving long distances while on medicines. * Zuleika Perez MD - 12/16/2023 9:30 AM EDT Images from the original note were not included. Subjective Patient ID: Guillermina Johnston is a 43 y.o. female who presents for Anxiety. Pt has [facility]an[facility] amiovig and this has helped her Three to four times a month, and pt states nausea, lights and sounds effect her , will sleep all day Anxiety Presents for follow-up visit. Patient reports no chest pain, compulsions or palpitations. Symptoms occur most days. The severity of symptoms is mild. The quality of sleep is good. Nighttime awakenings: occasional. Compliance with medications is 76-100%. Migraine This is a chronic problem. The current episode started more than 1 year ago. The problem occurs monthly. Current Outpatient Medications on File Prior to Visit Medication Sig Dispense Refill citalopram (CeleXA) 20 MG tablet 1 (one) time each day at the same time. cyclobenzaprine (Flexeril) 10 MG tablet Take 1 tablet (10 mg) by mouth in the morning and 1 tablet (10 mg) in the evening and 1 tablet (10 mg) before bedtime. Do all this for 10 days. 30 tablet 0 Rimegepant Sulfate (Nurtec) [address] 75 mg under the tongue if needed (within1 hour of headache). 8 tablet 3 [DISCONTINUED] ALPRAZolam (Xanax) 0.5 MG tablet take 1 tablet by mouth every 12 hours 60 tablet 0 Current Facility-Administered Medications on File Prior to Visit Medication Dose Route Frequency Provider Last Rate Last Admin erenumab (Aimovig) injection 70 mg 70 mg Subcutaneous Once Zuleika Perez MD I have reviewed and reconciled the history and medication list with the patient today. Allergies Allergen Reactions Ciprofloxacin Other Reaction(s): Unknown Penicillin V Other Reaction(s): Unknown Social History Tobacco Use Smoking status: Every Day Current packs/day: 1.00 Types: Cigarettes Smokeless tobacco: Never Tobacco comments: 11-20 cigarettes/day Substance Use Topics Alcohol use: Not Currently Comment: Caffeine intake: 2-3 cups per day Family History Problem Relation Name Age of Onset Lung cancer Other Adoptive mother Past Medical History: Diagnosis Date Anxiety Chronic migraine without aura, not intractable, without status migrainosus (CMS/HCC) 09/23/2022 COVID 10/13/2021 Positive History of tremor Past Surgical History: Procedure Laterality Date DILATION AND CURETTAGE OF UTERUS 05/08/2018 D and C Hysteroscopy Dr. Boo [facility] HYSTERECTOMY 10/12/2018 dr boo LATERAL EPICONDYLE RELEASE Left 09/12/2023 (L) ELBOW ; DR DIXON TUBAL LIGATION 08/04/2014 Visit Vitals BP 130/88 Pulse 80 Ht 5' 4.5 Wt 181 lb SpO2 99% BMI 30.59 kg/m Smoking Status Every Day BSA 1.93 m Review of Systems Cardiovascular: Negative for chest pain and palpitations. All other systems reviewed and are negative. Objective Physical Exam Vitals reviewed. Constitutional: Appearance: Normal appearance. HENT: Head: Normocephalic. Right Ear: Hearing normal. Left Ear: Hearing normal. Mouth/Throat: Mouth: Mucous membranes are moist. Cardiovascular: Rate and Rhythm: Regular rhythm. Heart sounds: Normal heart sounds. Skin: General: Skin is warm and dry. Neurological: General: No focal deficit present. Mental Status: She is alert and oriented to person, place, and time. Psychiatric: Mood and Affect: Mood normal. Behavior: Behavior normal. Thought Content: Thought content normal. Judgment: Judgment normal. Assessment/Plan Problem List Items Addressed This Visit Generalized anxiety disorder (CMS/HCC) - Primary Patient's Medicine is effective at controlling symptoms at current dose and frequency. PDMP reviewed with no evidence of overuse and abuse D/W patient to avoid use of benzodiazepines when consuming alcohol Advised against operating heavy machinery and driving long distances while on medicines. Relevant Medications ALPRAZolam (Xanax) 0.5 MG tablet Chronic migraine without aura, not intractable, without status migrainosus (CMS/HCC) Relevant Medications erenumab (Aimovig) 140 MG/ML injection Smoker Discussed smoking cessation with the patient. Encouraged patient to try to cut back gradually and soon quit smoking. Discussed ways to quit smoking including gum, patches, medication, and gradually reducing the number of cigarettes smoked daily. 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 Patient voiced understanding. Benefits of cessation, both health and financial, were reviewed. Other Visit Diagnoses Encounter for screening mammogram for malignant neoplasm of breast Relevant Orders Bilateral screening mammogram Follow up in about 3 months (around 03/17/2024) for Anxiety Meds F/U. documented in this encounterEllis Fischel Cancer [id number] History of Present illness Narrative* PHILLY Powell - 12/09/2023 9:00 AM EDT Images from the original note were not included. HISTORY OF PRESENT ILLNESS: POST OP PT Guillermina Johnston is an 43 y.o. @ female. No surgery found s/p surgery onNo surgery found (EST PT) S/P (L) ELBOW, LATERAL EPICONDYLECTOMY 09/12/23 (12WKS 4DAYS)-RTW- PT IS CURRENTLY ON 8HR DAYS/40HRS WK- NOTES INCREASE SORENESS- DENIES SWELLING- DISCOMFORT MEDIAL AND LATERAL ELBOW- OCCASIONALLY WAKES HS- +TYLENOL - PT NEEDS TO LET WORK KNOW WHAT HER RESTRICTIONS WILL BE NEXT WEEK REVIEW OF SYSTEMS: General: Denies fever, fatigue or weight loss Lungs: Denies SOB Cardio: Denies chest pain GI: Denies indigestion or abdominal pain Neuro: Denies numbness or tingling, denies new onset paralysis Musculoskeletal: ( see note) PHYSICAL EXAM: Elbow Musculoskeletal Exam Inspection Left Left elbow inspection is normal. Ecchymosis: none Swelling: none Deformity: none Prior incision: lateral Incision: well-healed Palpation Left Left elbow palpation is normal. Crepitus (radiocapitellar): none Tenderness: none Range of Motion Left Left elbow range of motion is normal. Active Extension: 0 Passive Extension: 0 Active Flexion: 140 Passive Flexion: 140 Active Pronation: 90 Passive Pronation: 90 Active Supination: 90 Passive Supination: 90 Strength Left Left elbow strength is normal. Extension: 5/5. Flexion: 5/5. Pronation: 5/5. Supination: 5/5. Finger abduction: 5/5. 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 Neurovascular Left Left elbow nerve sensation is normal. Radial pulse: normal and 2+ Capillary refill: <3 sec Special Tests Left Left elbow special tests are normal. Instability Exam Varus test: negative Valgus test: negative General Constitutional: appears stated age Lymphadenopathy: none No image results found. Procedures No orders of the defined types were placed in this encounter. ASSESSMENT: ICD-10-CM 1. History of epicondylectomy Z98.890 PLAN: Soreness medial elbow and forearm since return to work. Elbow still better than before surgery.. Ptrequesting 8 hour a day work restrictions, but no weekly hour restriction as she acclimates to new job.. pt may work 8 hour a day 56 hours a week for additional 2 wks with PRN follow up. Questions answered in laymen terms at the bedside. The diagnosis, home exercise plan and any ongoing restrictions/ recommendations reviewed. If unable to be reached in office, I recommend evaluation at nearest Emergency Room if any symptoms worsened or new symptoms develop for requiring urgent evaluation. documented in this encounterEllis Fischel Cancer [id number] History of Present illness Narrative* PHILLY Powell - 11/26/2023 11:00 AM EDT Images from the original note were not included. HISTORY OF PRESENT ILLNESS: POST OP PT Guillermina Johnston is an 42 y.o. @ female. No surgery found s/p surgery onNo surgery found (EST PT) S/P (L) ELBOW, LATERAL EPICONDYLECTOMY 09/12/23 (10WKS 5DAYS)- DOING BETTER- CONTINUES HEP;NOTES INCREASE ROM- DIFFICULTY FULLY EXTENDING- +TYLENOL PRN- OCCASIONAL SHARP SHOOTING PAIN - +STIFFNESS- CONTINUES OFF WORK REVIEW OF SYSTEMS: General: Denies fever, fatigue or weight loss Lungs: Denies SOB Cardio: Denies chest pain GI: Denies indigestion or abdominal pain Neuro: Denies numbness or tingling, denies new onset paralysis Musculoskeletal: ( see note) PHYSICAL EXAM: Elbow Musculoskeletal Exam Inspection Left Left elbow inspection is normal. Ecchymosis: none Swelling: none Deformity: none Prior incision: lateral Incision: well-healed Palpation Left Left elbow palpation is normal. Crepitus (radiocapitellar): none Tenderness: none (trace soreness at incision.) Range of Motion Left Left elbow range of motion is normal. Active Extension: 0 (minimal soreness on terminal extension.) Passive Extension: 0 Active Flexion: 140 Passive Flexion: 140 Active Pronation: 90 Passive Pronation: 90 Active Supination: 90 Passive Supination: 90 Strength Left Left elbow strength is normal. Extension: 5/5. Flexion: 5/5. Pronation: 5/5. Supination: 5/5. Finger abduction: 5/5. 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 Neurovascular Left Left elbow nerve sensation is normal. Radial pulse: normal and 2+ Capillary refill: <3 sec Special Tests Left Left elbow special tests are normal. Instability Exam Varus test: negative Valgus test: negative General Constitutional: appears stated age Lymphadenopathy: none No image results found. Procedures No orders of the defined types were placed in this encounter. ASSESSMENT: ICD-10-CM 1. History of epicondylectomy Z98.890 PLAN: Recommend return to work Friday with 8 hr- 40 hour work week restrictions for 2 wks to acclimate back to job.. pt reports mandates for 7 days a week at 12 hour shift.. 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 Pt pleased notes, elbow feels much better than before surgery. Questions answered in laymen terms at the bedside. The diagnosis, home exercise plan and any ongoing restrictions/ recommendations reviewed. If unable to be reached in office, I recommend evaluation at nearest Emergency Room if any symptoms worsened or new symptoms develop for requiring urgent evaluation. documented in this encounterEllis Fischel Cancer [id number] History of Present illness Narrative* PHILLY Powell - 10/29/2023 10:00 AM EDT Images from the original note were not included. HISTORY OF PRESENT ILLNESS: POST OP PT Guillermina Johnston is an 42 y.o. @ female. No surgery found s/p surgery onNo surgery found (EST PT) S/P (L) ELBOW, LATERAL EPICONDYLECTOMY 09/12/23 (6WKS 5DAYS)- DOING WELL- NOTES OCCASIONAL SHARP PAIN LATERAL/POSTERIOR ELBOW- INCREASE ROM- CONTINUES HEP- CONTINUES TO LIMIT LIFTING- NO PAINMEDS REVIEW OF SYSTEMS: General: Denies fever, fatigue or weight loss Lungs: Denies SOB Cardio: Denies chest pain GI: Denies indigestion or abdominal pain Neuro: Denies numbness or tingling, denies new onset paralysis Musculoskeletal: ( see note) PHYSICAL EXAM: Left Elbow Exam Left elbow exam is normal. Tenderness Left elbow tenderness location: minimlal soreness at incision site [id number]. Range of Motion The patient has normal left elbow ROM. Extension: normal Flexion: normal Supination: normal Muscle Strength The patient has normal left elbow strength. Pronation: 5/5 Supination: 5/5 Tests Varus: negative Other Erythema: absent Scars: present (well healing.) Pulse: present Comments: Soreness medial forearm with use. No pain to lateral elbow. No image results found. Procedures No orders of the defined types were placed in this encounter. ASSESSMENT: ICD-10-CM 1. History of epicondylectomy Z98.890 PLAN: Full rom without pain, recheck in 4 wks with release to work at that time without restrictions.. ptmay start putting weight in left arm.. no whipping motion/ pushups.. watchful of wrist position with lifting.. pt thankful pleased with progress. Questions answered in laymen terms at the bedside. The diagnosis, home exercise plan and any ongoing restrictions/ recommendations reviewed. If unable to be reached in office, I recommend evaluation at nearest Emergency Room if any symptoms worsened or new symptoms develop for requiring urgent evaluation. documented in this encounterEllis Fischel Cancer [id number] History of Present illness Narrative* Jr. Kim Dixon, - 04/02/2023 9:00 AM EST Images from the original note were not included. HISTORY OF PRESENT ILLNESS: EST PT Guillermina Johnston is an 42 y.o. @ female. EST PT (MOST RECENT VISIT WITH DIEUDONNE) RECHECK RT ELBOW LATERAL ELBOW PAIN-HERE FOR EMG BL UE MINDI 04/01/23 (IN MEDIA) XRAY [facility] 07/13/22 NO MRI TENNIS ELBOW BRACE FLEXERIL PREDNISONE 11/11/22 CORTISONE INJ 12/16/22 EMG B/L UE 04/01/23 MINDI PT NOMS DELVIN NO PAIN MANAGEMENT CONTINUES TO HAVE PAIN LATERAL ELBOW- +RADIATING PAIN DOWN TO RT RF/MF- DIFFICULTY GRIPPING- PT STATES SHE FEELS LIKE A MUSCLE CRAMP IN HER THUMB- DENIES N/T- +TYLENOL- PT STATES BURNING SENSATION HAS RESOLVED- WEARS WRIST AND ELBOW BRACE- PT IS RT HAND DOMINANT PT NOTES SOME SYMPTOMS IN LT ELBOW RECENTLY ALLERGIES: Allergies Allergen Reactions Ciprofloxacin Other Reaction(s): Unknown Penicillin V Other Reaction(s): Unknown HOME MEDICATIONS: Current Outpatient Medications Medication Instructions ALPRAZolam (XANAX) 0.5 mg, Oral, Every 12 hours celecoxib (CELEBREX) 200 mg, Oral, Daily citalopram (CeleXA) 20 MG tablet Every 24 hours cyclobenzaprine (FLEXERIL) 10 mg, Oral, 3 times daily methylPREDNISolone (Medrol Dospak) 4 MG tablets Follow schedule on package instructions Nurtec 75 mg, Sublingual, As needed PHYSICAL EXAM: Elbow Musculoskeletal Exam Inspection Right Right elbow inspection is normal. Ecchymosis: none Swelling: lateral Deformity: none Left Left elbow inspection is normal. Ecchymosis: none Swelling: lateral Deformity: none Palpation Right Crepitus (radiocapitellar): none Tenderness: present Medial/flexor origin: none Lateral/extensor origin: moderate Posterior-olecranon: none Radial tunnel/PIN: moderate Left Crepitus (radiocapitellar): none Tenderness: present Medial/flexor origin: none Lateral/extensor origin: moderate Posterior-olecranon: none MCL: none LCL: none Range of Motion Right Right elbow range of motion is normal. Active Extension: 0 Passive Extension: 0 Active Flexion: 140 Passive Flexion: 140 Active Pronation: 90 Passive Pronation: 90 Active Supination: 90 Passive Supination: 90 Left Left elbow range of motion is normal. Active Extension: 0 Passive Extension: 0 Active Flexion: 140 Passive Flexion: 140 Active Pronation: 90 Passive Pronation: 90 Active Supination: 90 Passive Supination: 90 Strength Right Right elbow strength is normal. Extension: 5/5. Extension is affected by pain. Flexion: 5/5. Pronation: 5/5. Supination: 5/5. Supination is affected by pain. Finger abduction: 5/5. 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 Left Left elbow strength is normal. Extension: 5/5. Extension is affected by pain. Flexion: 5/5. Pronation: 5/5. Supination: 5/5. Supination is affected by pain. Finger abduction: 5/5. 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 Neurovascular Right Right elbow nerve sensation is normal. Radial pulse: normal Capillary refill: <3 sec Ulnar nerve sensory distribution: normal Median nerve sensory distribution: normal Left Left elbow nerve sensation is normal. Radial pulse: normal Capillary refill: <3 sec Ulnar nerve sensory distribution: normal Median nerve sensory distribution: normal Radial nerve sensory distribution: normal Special Tests Right Neurological Signs Pain with resisted pronation: negative Pain with resisted supination: positive Pain with resisted long finger: positive Epicondylitis Signs Pain with resisted wrist flexion: negative Pain with resisted wrist extension: positive Special Signs Pain with terminal extension: positive Left Neurological Signs Pain with resisted pronation: negative Pain with resisted supination: positive Pain with resisted long finger: positive Epicondylitis Signs Pain with resisted wrist flexion: negative Pain with resisted wrist extension: positive Special Signs Pain with terminal extension: positive Vitals: Body mass index is 27.04 kg/m . Tobacco Use: High Risk (04/02/2023) Patient History Smoking Tobacco Use: Every Day Smokeless Tobacco Use: Never Passive Exposure: Not on file Alcohol Use: Not on file IMAGING: Procedures No orders of the defined types were placed in this encounter. ASSESSMENT: ICD-10-CM 1. Pain of both elbows M25.521 methylPREDNISolone (Medrol Dospak) 4 MG tablets M25.522 celecoxib (CeleBREX) 200 MG capsule 2. Right elbow pain M25.521 3. Lateral epicondylitis of both elbows M77.11 M77.12 4. Radial tunnel syndrome G56.30 PLAN: We have answered all the patients questions and explained the patients condition, decision making and plan including the risks and benefits associated with said plan in layman''s terms in a language the patient could understand easily. If patient''s symptoms significantly worsen and they cannot get a hold of us or their family physician, we have recommended that the patient proceed to the nearest emergency department (room). Dr. Dixon obtained history and examined the patient, I am acting as scribe for Dr. Dixon/[facility], PLAN: We have discussed B/L UE EMG results with patient at bedside : negative. We have reviewed prior (R) elbow xrays. After examination today we are recommending a repeat MDP and Celebrex to attemptto decrease the inflammation of her b/l elbows ; she is understanding she is unable to take additional NSAIDs while taking Celebrex. We are recommending that she start stretches and mason cup ice massages bilaterally 5minutes daily. We are taking her off of work pending follow up. We have discussedher HEP and restrictions and will see her back in 4 weeks to reassess her b/l elbows, if her right elbow symptoms persist or worsen we may recommend a referral to Dr. Solomon / Dr. Ramirez for lateral e picondylitis w/radial tunnel syndrome, if her left elbow symptoms persist or worsen we may recommend a cortisone injection. Patito Valdovinos MA documented [facility]* Diagnosis Pain of both elbows- Primary Right elbow pain Pain in joint, upper arm Lateral epicondylitis of both elbows Radial tunnel syndrome Lesion of radial nerve [facility]* Diagnosis History of epicondylectomy- Primary documented [facility] this [facility]* Diagnosis Generalized anxiety disorder (CMS/HCC)- Primary Generalized anxiety disorder Chronic migraine without aura, not intractable, without status migrainosus (CMS/HCC) Lateral epicondylitis of right elbow Tobacco use Smoker Tobacco use disorder Generalized anxiety disorder (CMS/HCC)- Primary Generalized anxiety disorder Encounter for screening mammogram for malignant neoplasm of breast Chronic migraine without aura, not intractable, without status migrainosus (CMS/HCC) Smoker Tobacco use disorder [facility]* Diagnosis Generalized anxiety disorder (CMS/HCC)- Primary Generalized anxiety disorder Chronic migraine without aura, not intractable, without status migrainosus (CMS/HCC) Lateral epicondylitis of right elbow Tobacco use Smoker Tobacco use disorder Generalized anxiety disorder (CMS/HCC)- Primary Generalized anxiety disorder Encounter for screening mammogram for malignant neoplasm of breast Chronic migraine without aura, not intractable, without status migrainosus (CMS/HCC) Smoker Tobacco use disorder Intractable chronic migraine with aura with status migrainosus (CMS/HCC)- Primary Left elbow pain Pain in joint, upper arm Post-operative pain Other acute postoperative pain Decreased range of motion of elbow, left [facility]* Diagnosis History of epicondylectomy- Primary documented [facility] this [facility]* Diagnosis Generalized anxiety disorder (CMS/HCC)- Primary Generalized anxiety disorder Chronic migraine without aura, not intractable, without status migrainosus (CMS/HCC) Lateral epicondylitis of right elbow Tobacco use Smoker Tobacco use disorder Generalized anxiety disorder (CMS/HCC)- Primary Generalized anxiety disorder Encounter for screening mammogram for malignant neoplasm of breast Chronic migraine without aura, not intractable, without status migrainosus (CMS/HCC) Smoker Tobacco use disorder Shakiness- Primary Abnormal involuntary movements Generalized anxiety disorder (CMS/HCC) Generalized anxiety disorder Cigarette nicotine dependence with nicotine-induced disorder documented [facility]* Diagnosis Generalized anxiety disorder (CMS/HCC)- Primary Generalized anxiety disorder Chronic migraine without aura, not intractable, without status migrainosus (CMS/HCC) Lateral epicondylitis of right elbow Tobacco use Smoker Tobacco use disorder Generalized anxiety disorder (CMS/HCC)- Primary Generalized anxiety disorder Encounter for screening mammogram for malignant neoplasm of breast Chronic migraine without aura, not intractable, without status migrainosus (CMS/HCC) Smoker Tobacco use disorder Shakiness- Primary Abnormal involuntary movements Generalized anxiety disorder (CMS/HCC) Generalized anxiety disorder Cigarette nicotine dependence with nicotine-induced disorder Left elbow pain- Primary Pain in joint, upper arm Intractable chronic migraine with aura with status migrainosus (CMS/HCC) Generalized anxiety disorder (CMS/HCC) Generalized anxiety disorder [facility]* Diagnosis Generalized anxiety disorder (CMS/HCC)- Primary Generalized anxiety disorder Chronic migraine without aura, not intractable, without status migrainosus (CMS/HCC) Lateral epicondylitis of right elbow Tobacco use Smoker Tobacco use disorder Generalized anxiety disorder (CMS/HCC)- Primary Generalized anxiety disorder Encounter for screening mammogram for malignant neoplasm of breast Chronic migraine without aura, not intractable, without status migrainosus (CMS/HCC) Smoker Tobacco use disorder Shakiness- Primary Abnormal involuntary movements Generalized anxiety disorder (CMS/HCC) Generalized anxiety disorder Cigarette nicotine dependence with nicotine-induced disorder Left elbow pain- Primary Pain in joint, upper arm Intractable chronic migraine with aura with status migrainosus (CMS/HCC) Generalized anxiety disorder (CMS/HCC) Generalized anxiety disorder Generalized anxiety disorder (CMS/HCC) Generalized anxiety disorder documented in this encounter [facility] Summary Purpose Family History No Family History Records FoundNo Family History Records Found Advance Directives No Advanced Directives Records FoundNo Advanced Directives Records Found Additional Source Comments INFORMATION SOURCE (unrecogn ized section and content) DATE CREATED AUTHOR 07/17/2022 [facility] DATE CREATED AUTHOR AUTHOR'S ORGANIZ ATION 08/04/2024 [facility] EPIC Reason for Visit (unrecogniz ed section and content) ReasonCommentsPainReasonCommentsAnxietyReasonCommentsFollow-upTBH Er 02/09/24 dx: migraine DESAI no med changes discharged homeReasonCommentsAnxietyReasonComments Med RefillReasonOnset YblyOfcqeganFUO69/18/2025 Care Teams (unrecognized sec tion and content) Team MemberRelationshipSpecialtyStart DateEnd Date Zuleika Perez MD [address] [facility] [address] [place] [address] PCP - [facility]06/01/22 Zuleika Perez MD [address] [facility] [address] [place] [address] [facility]22Team MemberRelationshipSpecialtyStart DateEnd Date Zuleika Perez MD [address] [facility] [address] [place] [address] [facility] - [facility]22 Zuleika Perez MD [address] [facility] [address] [place] [address] PCP - [facility]12/01/22Te MemberRelationshipSpecialtyStart DateEnd Date Zuleika Perez MD [address] [facility] [address] [place] [address] PCP - [facility]09/27/22 Zuleika Perez MD [address] [place] [address] [place] [address] PCP - [place] [facility] Dlntgeuciw99/1/23Team MemberRelationshipSpecialtyStart DateEnd Date Zuleika Perez MD [address] [place] [address] [place] [address] [facility] - [facility]22 Zuleika Perez MD [address] [place] [address] [place] [address] PCP - [place] Shkvljjalk24/1/23Team MemberRelationshipSpecialtyStart DateEnd Date Zuleika Perez MD [address] [place] [address] [place] [address] [facility]/27/22 Zuleika Perez MD [address] [place] [address] [place] [address] PCP - [place] Ixsljjzmzd17/1/23Team MemberRelationshipSpecialtyStart DateEnd Date Zuleika Perez MD [address] [place] [address] [place] [address] [facility]/27/22 Zuleika Perez MD [address] [place] [address] [place] [address] PCP - [place] Wuyoiopdrn29/1/23Team MemberRelationshipSpecialtyStart DateEnd Date Zuleika Perez MD [address] [place] [address] [place] [address] [facility]09/27/22 Zuleika Perez MD [address] [facility] [address] [place] [address] PCP - [facility]12/01/22Te MemberRelationshipSpecialtyStart DateEnd Date Zuleika Perez MD [address] [facility] [address] [place] [address] [facility]09/27/22 Zuleika Perez MD [address] [facility] [address] [place] [address] [facility]12/01/22Te MemberRelationshipSpecialtyStart DateEnd Date Zuleika Perez MD [address] [facility] [address] [place] [address] [facility]09/27/22Te MemberRelationshipSpecialtyStart DateEnd Date Zuleika Perez MD [address] [facility] [address] [place] [address] [facility]09/27/22 FOR RECORDS PERTAINING TO PATIENTS WHO ARE OR HAVE BEEN ENROLLED IN A CHEMICAL DEPENDENCY/SUBSTANCEABUSE PROGRAM, SOME INFORMATION MAY BE OMITTED. This clinical summary was aggregated from multiple sources. Caution should be exercised in using it in the provision of clinical care. This summary normalizes information from multiple sources, and as a consequence, information in this document may materially change the coding, format and clinical context of patient data. In addition, data may be omitted in some cases. CLINICAL DECISIONS SHOULD BE BASED ON THE PRIMARY CLINICAL RECORDS. [facility]. provides no warranty or guarantee of the accuracy or completeness of information in this document.
--- OUTSIDE RECORDS SUMMARY | 2025-02-06 15:44 | XMS_ITS | Clinical Summary ---
Author Organization [facility] Healthcare Address [address] [place] [address] Care Team Providers Care Railroad Firer Name Role Phone Zuleika Siddiqi MD Primary Care Provider [phone] Allergies Active AllergyReactionsCriticalityNoted NntlGaoyahpiWgtnxjeroqyff01/24/2023 Other Reaction(s): Unknown Penicillin V009/23/2022 Other Reaction(s): Unknown Medications MedicationSigDispense QuantityRefillsLast FilledStart DateEnd DateStatus cyclobenzaprine (Flexeril) 10 MG tablet Indications:Chronic migraine without aura, not intractable, without status migrainosusTake 1 tablet (10 mg) by mouth in the morning and 1 tablet (10 mg) in the evening and 1 tablet (10 mg) before bedtime. Do all this for 10 days. 30 tablet 4Active Rimegepant Sulfate (Nurtec) 75 MG tablet dispersible Indications:Chronic migraine without aura, not intractable, without status migrainosusPlace 75 mg under the tongue if needed (every other day) 16 tablet 4Active ALPRAZolam (Xanax) 0.5 MG tablet Indications:Generalized anxiety disorderTake 1 tablet (0.5 mg) by mouth every 12 (twelve) hours 60 tablet 5Active fremanezumab (Ajovy) 225 MG/1.5ML auto-injector Indications:Intractable chronic migraine with aura with status migrainosusInject 1 pen (225 mg) under the skin every 30 (thirty) days 4.5 mL 3065Active Active Problems ProblemNoted DateDiagnosed NkjxTflgmravc11/27/2025 Assessment & Plan (03/29/2024 8:41 AM EST): Was diagnosed with panic attacks after ER visit Cigarette nicotine dependence with nicotine-induced ywicyfig41/27/2025 Assessment & Plan (03/29/2024 8:42 AM EST): Discussed smoking cessation with the patient. Encouraged patient to try to cut back gradually and soon quit smoking. Discussed ways to quit smoking including gum, patches, medication, and gradually reducing the number of cigarettes smoked daily. 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 Patient voiced understanding. Benefits of cessation, both health and financial, were reviewed. Intractable chronic migraine with aura with status aoiohvnqkif05/17/2024 Assessment & Plan (08/03/2024 2:26 PM EDT): Nurtec samples given Post-operative pain02/17/2024ecreased range of motion of elbow, left02/17/2024 Left elbow pain07/01/2023 Assessment & Plan (08/03/2024 2:35 PM EDT): Dr. Dixon Still cannot straighten elbow Weight stretch Lula Right elbow pain12/27/2022Lateral epicondylitis of right elbow09/30/2022 Assessment & Plan (09/30/2022 9:11 AM EDT): ..I discussed with patient that while on prednisone, do not take any NSAIDs like Ibuprofen, Naprosyn, Alleve or motrin. Watch for any side effects like abdominal pain and nausea. Take the prednisone with food or milk. Prednisone may increase appetite. While on prednisone, watch for any sugar elevations. Abnormal cervical Papanicolaou smear09/23/2022History of sjgqjxhmfefm86/24/2023 Sddycwzbpuxqktflmena53/24/8550Zghmgn74/24/2023 Assessment & Plan (12/16/2023 9:40 AM EDT): Discussed smoking cessation with the patient. Encouraged patient to try to cut back gradually and soon quit smoking. Discussed ways to quit smoking including gum, patches, medication, and gradually reducing the number of cigarettes smoked daily. 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 Patient voiced understanding. Benefits of cessation, both health and financial, were reviewed. Assessment & Plan (09/30/2022 9:11 AM EDT): Discussed smoking cessation with the patient. Encouraged patient to cut back and soon quit smoking.Health risks of smoking, and benefits of quitting reviewed with the patient. Generalized anxiety itezirnr31/15/2023 Assessment & Plan (08/03/2024 2:26 PM EDT): Patient's Medicine is effective at controlling symptoms at current dose and frequency. PDMP reviewed with no evidence of overuse and abuse D/W patient to avoid use of benzodiazepines when consuming alcohol Advised against operating heavy machinery and driving long distances while on medicines. Assessment & Plan (03/29/2024 8:36 AM EST): Patient's Medicine is effective at controlling symptoms at current dose and frequency. PDMP reviewed with no evidence of overuse and abuse D/W patient to avoid use of benzodiazepines when consuming alcohol Advised against operating heavy machinery and driving long distances while on medicines. Assessment & Plan (12/16/2023 9:38 AM EDT): Patient's Medicine is effective at controlling symptoms at current dose and frequency. PDMP reviewed with no evidence of overuse and abuse D/W patient to avoid use of benzodiazepines when consuming alcohol Advised against operating heavy machinery and driving long distances while on medicines. Assessment & Plan (09/30/2022 9:06 AM EDT): ..Patient's Medicine is effective at controlling symptoms at current dose and frequency. PDMP reviewed with no evidence of overuse and abuse D/W patient to avoid use of benzodiazepines when consuming alcohol Advised against operating heavy machinery and driving long distances while on medicines. Resolved Problems ProblemNoted DateDiagnosed DateResolved DateLateral epicondylitis of left elbow hronic migraine without aura, not intractable, without status szukenhoaid87 Assessment & Plan (09/30/2022 9:06 AM EDT): Aimovig and Nurtec were effective. Decreased intensity and severity and frequency Migraine with aura and without status migrainosus, not hcwiyjexshl26/24/2023 02/17/2024 Immunizations ImmunizationAdministration DatesNext DueInfluenza, injectable, quadrivalent 12/03/2019Influenza, injectable, quadrivalent, preservative free04/22/2018 Family History Medical HistoryRelationNameCommentsLung cancerOtherAdoptive motherRelationName StatusCommentsDaughterAliveFatherAliveMotherDeceasedOtherAdoptive motherSonAlive Social History Tobacco UseTypesPacks/DayYears UsedDateSmoking Tobacco: Every DayCigarettes Smokeless Tobacco: Never Tobacco Cessation:Ready to Q uit: Not Asked; Counseling Given: Not Answered Comments:11-20 cigarettes/day Alcohol UseStandard Drinks/WeekCommentsNot Currently0 (1 standard drink = 0.6 oz pure alcohol)Caffeine intake: 2-3 cups per dayPHQ-2AnswerDate RecordedPatient Health Questionnaire-2 Uomls809CommentsUnknownSex and Gender InformationValueDate RecordedSex Assigned at BirthNot on fileLegal SexFemale 05/15/2022 8:28 PM EDTGender IdentityNot on fileSexual OrientationNot on file Last Filed Vital Signs Vital SignReadingTime TakenCommentsBlood Txbpvpng675/7806 2:20 PM EDT Yxmnb0906/03/2025 2:20 PM EDTTemperature--Respiratory Iicl6064 9:32 AM EDTOxygen Xifdxusflr45%08/03/2024 2:20 PM EDTInhaled Oxygen Concentration-- Qoujgj59.5 kg (193 lb)08/03/2024 2:20 PM UVZHptvjh792.8 cm (5' 4.5 )08/03/2024 2:20 PM EDTBody Mass Index32.62008/03/2024 2:20 PM EDT Plan of Treatment Health MaintenanceDue DateLast DoneCommentsPneumococcal Vaccine: Pediatrics (0 to 5 Years) and At-Risk Patients (6 to 64 Years) (1 of 2 - PCV)2001COVID- 19 Vaccine (1 - 2025-26 season)11/01/20240675Jhbfmlrun55Influenza MlrroneGpcqbcmoxmsx10/02/2020, 04/22/2018 Procedures Procedure NamePriorityDate/TimeAssociated DiagnosisCommentsBI MAMMOGRAM SCREENING TOMOSYNTHESIS VEREKSPWRUpszqyf18/14/2024 8:54 AM EST Encounter for screening mammogram for malignant neoplasm of breast from Last 3 Months or Most Recently Relevant to Health Maintenance Results * Bilateral screening mammogram with tomosynthesis (01/15/2024 8:54 AM EST) Anatomical RegionLateralityModalityBreastBilateralMammographySpecimen (Source) Anatomical Location / LateralityCollection Method / VolumeCollection Time Received Time01/16/2024 9:49 AM EST Impressions 01/16/2024 9:54 AM EST Impression: No specific evidence of malignancy seen in either breast. BIRADS 2 - Benign DENSITY: The breasts are heterogeneously dense, which may obscure small masses FOLLOW-UP: Routine Screening Mamm ELECTRONICALLY SIGNED BY: Ganesh Finley M.D. Narrative 01/16/2024 9:54 AM EST Examination: BI MAMMOGRAM SCREENING TOMOSYNTHESIS BILATERAL Clinical History: yearly Technique: Screening digital mammography study of both breasts was performed with 2-D and 3-D tomosynthesis imaging. No prior study available for comparison. Findings: There is no evidence of dominant spiculated mass, grouped microcalcifications, or skin thickening which would be suggestive of malignancy. ?? A few benign-appearing calcifications are seen bilaterally. Axillary lymph nodes are noted bilaterally. Procedure Note Ganesh Finley MD - 01/16/2024 Examination: BI MAMMOGRAM SCREENING TOMOSYNTHESIS BILATERAL Clinical History: yearly Technique: Screening digital mammography study of both breasts wasperformed with 2-D and 3-D tomosynthesis imaging. No prior study availablefor comparison. Findings: There is no evidence of dominant spiculated mass, grouped microcalcifications, or skin thickening which would be suggestive ofmalignancy. A few benign-appearing calcifications are seen bilaterally. Axillary lymphnodes are noted bilaterally. IMPRESSION: Impression: No specific evidence of malignancy seen in either breast. BIRADS 2 - Benign DENSITY: The breasts are heterogeneously dense, which may obscure smallmasses FOLLOW-UP: Routine Screening Mamm ELECTRONICALLY SIGNED BY: Ganesh Finley M.D. Authorizing ProviderResult TypeResult StatusZuleika Siddiqi MDIMLuz BI PROCEDURES Final Result from Last 3 Months or Most Recently Relevant to Health Maintenance Insurance * Guarantor: Brodie Johnston TypeRelation to PatientDate of BirthPhone Billing AddressPersonal/GxrpzyMgxz[address] [place] [id number] Care Teams Team MemberRelationshipSpecialtyStart DateEnd Date Zuleika Siddiqi MD [address] [address] PCP - GeneralFamily Medicine09/27/22
[2025-02-06] MEDS: IBUPROFEN 400 MG TABLET 800 MG PO (15:45)
== END 2025-02-06 15:53 | disposition home or self-care (01) ==
LOC: ER 15:41
PROVIDERS: Emergency Provider Emergency Medicine; PCP Family Medicine
DX: K04.7 Periapical abscess without sinus (principal); K02.9 Dental caries, unspecified; K08.89 Other specified disorders of teeth and supporting structures; F17.200 Nicotine dependence, unspecified, uncomplicated
CPT/HCPCS: 99283